=== PATIENT | female | born 1990 | race Caucasian/White ===

== ENCOUNTER 2016-07-26 07:39 | Emergency (ER) | payer OTHER ==
[~2016-07-26] VITALS: Ht 160 cm; Wt 125.0 kg
[2016-07-26 07:41] VITALS: TEMP 36.6; Ht 160 cm; Wt 125.0 kg
[2016-07-26] MEDS ORDERED: ETON1IMP2 (07:53)
[2016-07-26] MEDS ORDERED: SUMA50TA15 PO (07:53)
[2016-07-26] MEDS ORDERED: ONDA4TAB46 PO (07:53)
[2016-07-26] MEDS ORDERED: SODIUM CHLORIDE 0.9% 1000ML 1,000 ML IV STA (07:55)
[2016-07-26] MEDS ORDERED: ONDANSETRON INJ 2 MG/ML 2 ML VIAL IV STA (08:09)
[2016-07-26] MEDS ORDERED: MoRPHine SULFATE 4 MG/ML 1 ML CARP\\VIAL IV STA (08:09)
[2016-07-26 08:15] LABS: BASO % 0.3 %; BASO ABS # 0.02 K/uL (0-0.2); COMPLETE YES; EOS % 3.3 %; HEMATOCRIT 41.2 % (37-47); IG% 0.2 %; MEAN CELL VOLUME 87.3 fL (80-100); MEAN CORPUSCULAR HEMOGLOBIN 29.7 pg (25-34); MONO % 7.2 %; PLATELET COUNT 427 K/uL (130-400); RED BLOOD COUNT 4.72 M/uL (4.2-5.4); WHITE BLOOD COUNT 6.41 K/uL (4.8-10.8)
--- NOTE | 2016-07-26 08:16 | EMERGENCY ROOM VISIT NOTE ---
History First contact with patient: 07:48 Chief Complaint: BACK PAIN Stated Complaint: SEVERE LWR RT BACK PAIN, NAUSEA, VOMITING History of Present Illness The patient is a 25 year old female who presents to the Emergency Room via private vehicle with complaints of "severe lower back pain, nausea, vomiting" The patient states that she has had right lower back pain since yesterday with increased urinary frequency. She also states that she feels bloated. She has also had associated nausea and vomiting since 7 PM last night. She does have a history of kidney stones and states this does feel similar. She's been taking ibuprofen for relief of the pain, with her most recent dose being around 5 AM this morning. She states that the pain in the right lower back feels like a stabbing sensation that radiated around the right flank. She rates the pain as a 7/10. She denies any chance of sexually transmitted infection or diseases. She denies any chance of . There is associated lightheadedness, increased nausea. Her prior abdominal surgeries include . Review of Systems A complete 10-point Review of Systems was discussed with the patient, with pertinent positives and negatives listed in the History of Present Illness. All remaining Review of Systems questions can be considered negative unless otherwise specified. Past Medical/Surgical History C Section Family History No pertinent family history Social History Smoking Status: Current Some Day Smoker Social History: Patient lives at home with family. Current/Historical Medications Scheduled Sulfa/Trimethoprim (Bactrim Ds 800MG/160MG), 1 TAB PO BID Sumatriptan Succinate (Imitrex), Unknown Dose PO PRN Scheduled PRN Ondansetron Hcl (Zofran), 4 MG PO Q6H PRN for Nausea Oxycodone Ir (Roxicodone Ir), 1-2 TAB PO Q4H PRN for Pain Miscellaneous Medications Etonogestrel (Nexplanon) Allergies Coded Allergies: Cortisone (Unverified Allergy, Unknown, ., 07/26/16) Doxycycline (Unverified Allergy, Unknown, ., 07/26/16) Penicillins (Unverified Allergy, Unknown, ., 07/26/16) Physical Exam Vital Signs Date Time Temp Pulse Resp B/P Pulse Ox O2 Delivery O2 Flow Rate FiO2 07/26/16 10:26 58 18 113/72 98 07/26/16 09:01 60 18 124/59 99 Room Air 07/26/16 07:41 36.6 95 18 166/96 99 Room Air Physical Exam VITAL SIGNS - Vital signs and nursing notes were reviewed. Patient is afebrile , hypertensive at 166/96, non-tachycardic and is saturating well on room air 99% . GENERAL -25-year-old female appearing her stated age who is in no acute distress. Communicates well with provider and answers questions appropriately. SKIN - Without rashes. HEAD - NC/AT. EYES - PERRL with EOMI bilaterally. Sclera anicteric. Palpebral conjunctiva pink and moist with no injection noted. EARS - No deformities of external structures noted on gross examination bilaterally. No pain elicited with palpation of the tragus bilaterally. External auditory canals without discharge or otorrhea. Tympanic membranes pearly madrigal without retraction or bulging. No fluid or purulent material visualized behind the TM. Handle of malleus, umbo, cone of light, pars tensa/ flaccid all easily visualized. NOSE - Midline and without cyanosis. No epistaxis or purulent drainage noted. Septum midline without deviation or septal hematoma noted. MOUTH/OROPHARYNX - Without perioral cyanosis. Buccal mucosa pink and moist and without leukoplakia. Tongue midline with equal elevation of palate bilaterally. No tonsillar hypertrophy, erythema, or exudates noted. Good dentition noted. NECK - Neck with FROM. Supple to palpation. No lymphadenopathy noted. No nuchal rigidity. LUNGS - Chest wall symmetric without accessory muscle use, intercostals retractions, or central cyanosis. Normal vesicular breath sounds CTA B/L. No wheezes, rales, or rhonchi appreciated. CARDIAC - RRR with S1/S2. No murmur, rubs, or gallops appreciated. ABDOMEN - Abdominal contour without pulsations or visible masses. BS normoactive all four quadrants. There is tenderness to palpation overlying the right SI joint is reproducible with palpation that radiates around the right flank into the right suprapubic region. No CVA tenderness. No palpable masses , hepatosplenomegaly, or ascites noted. EXTREMITIES - No clubbing or peripheral cyanosis. No pretibial edema present. + 5/5 strength noted in UE/LE bilaterally. NEUROLOGIC - Cranial nerves II through XII grossly intact. Sensory intact to light touch throughout. Patellar reflexes +2/4. PSYCH - A&Ox3 and cooperates fully with examiner. Pt is very pleasant and interacts well with examiner. Medical Decision & Procedures ER Provider Diagnostic Interpretation: CT SCAN OF THE ABDOMEN AND PELVIS WITHOUT IV CONTRAST CLINICAL HISTORY: Right flank pain. COMPARISON STUDY: No priors. TECHNIQUE: CT scan of the abdomen and pelvis is performed from the lung bases to the proximal femora. Images are reviewed in the axial, sagittal, and coronal planes. IV contrast was not administered for this examination as per the front clinician. The examination is degraded by large body habitus, and by streak artifact from the body wall abutting the CT gantry. Automated dose control exposure was utilized. CT DOSE: 1990.34 mGy.cm FINDINGS: Lung bases: The heart is normal in size and without pericardial effusion. The lung bases are clear. Liver: The unenhanced liver is enlarged, measuring 19.6 cm in length. The liver demonstrates diffusely diminished attenuation consistent with hepatic steatosis. Fatty sparing is seen adjacent to gallbladder fossa. There is no intrahepatic biliary ductal dilatation. Gallbladder: Unremarkable. Spleen: Normal in size and attenuation. Pancreas: Unremarkable. Adrenal glands: Unremarkable. Kidneys: The unenhanced kidneys are normal in size and without hydronephrosis. There are no renal calculi identified. There is no evidence of contour deforming renal mass lesion. Abdominal vasculature: The abdominal aorta is normal in course and caliber. Bowel: The small bowel and colon are normal in course and caliber. There is moderate colonic fecal retention. The appendix is well-visualized and normal. Peritoneum: There is no intraperitoneal free air or abdominal ascites. There is a fat-containing umbilical hernia. Lymphadenopathy: None. Pelvic viscera: The bladder is decompressed and grossly unremarkable. The uterus and adnexa are normal as visualized. Skeletal structures: No lytic or blastic lesions are seen. Mild sclerotic change is noted in the sacroiliac joints. IMPRESSION: 1. There are no acute infectious or inflammatory findings in the abdomen or pelvis. 2. Hepatomegaly and hepatic steatosis. Electronically signed by: Robert Handley M.D. 07/26/2016 8:34 AM Dictated Date/Time: 07/26/2016 8:30 AM PELVIC ULTRASOUND CLINICAL HISTORY: Right flank pain radiating to pelvis. COMPARISON STUDY: CT of the abdomen and pelvis July 26, 2016. TECHNIQUE: Transabdominal and transvaginal sonography of the pelvis was performed. FINDINGS: The uterus measures 7.5 x 4 x 4.5 cm. The endometrium measures 6 mm in thickness. This exam was compromised by suboptimal penetration. Neither ovary was visualized. There was no free fluid. IMPRESSION: 1. Normal sonographic appearance of the uterus. 2. Nonvisualization of the ovaries but no adnexal masses identified. 3. No free fluid. 4. Study compromised by suboptimal penetration. Electronically signed by: Blanco Last M.D. 07/26/2016 9:44 AM Dictated Date/Time: 07/26/2016 9:43 AM PELVIC ULTRASOUND CLINICAL HISTORY: Right flank pain radiating to pelvis. COMPARISON STUDY: CT of the abdomen and pelvis July 26, 2016. TECHNIQUE: Transabdominal and transvaginal sonography of the pelvis was performed. FINDINGS: The uterus measures 7.5 x 4 x 4.5 cm. The endometrium measures 6 mm in thickness. This exam was compromised by suboptimal penetration. Neither ovary was visualized. There was no free fluid. IMPRESSION: 1. Normal sonographic appearance of the uterus. 2. Nonvisualization of the ovaries but no adnexal masses identified. 3. No free fluid. 4. Study compromised by suboptimal penetration. Electronically signed by: Blanco Last M.D. 07/26/2016 9:44 AM Dictated Date/Time: 07/26/2016 9:43 AM Laboratory Results 07/26/16 08:05 Red Blood Count 4.72, Mean Corpuscular Volume 87.3, Mean Corpuscular Hemoglobin 29.7, Mean Corpuscular Hemoglobin Concent 34.0, Mean Platelet Volume 10.0, Neutrophils (%) (Auto) 50.0, Lymphocytes (%) (Auto) 39.0, Monocytes (%) (Auto) 7.2, Eosinophils (%) (Auto) 3.3, Basophils (%) (Auto) 0.3, Neutrophils # (Auto) 3.21, Lymphocytes # (Auto) 2.50, Monocytes # (Auto) 0.46, Eosinophils # (Auto) 0.21, Basophils # (Auto) 0.02 07/26/16 08:05 Test 07/26/16 07:48 07/26/16 08:05 Urine Color YELLOW Urine Appearance CLOUDY (CLEAR) Urine pH 7.0 (4.5-7.5) Urine Specific [place] 1.024 (1.000-1.030) Urine Protein NEG (NEG) Urine Glucose (UA) NEG (NEG) Urine Ketones NEG (NEG) Urine Occult Blood TRACE (NEG) Urine Nitrite NEG (NEG) Urine Bilirubin NEG (NEG) Urine Urobilinogen NEG (NEG) Urine Leukocyte Esterase TRACE (NEG) Urine WBC (Auto) >30 /hpf (0-5) Urine RBC (Auto) 0-4 /hpf (0-4) Urine Hyaline Casts (Auto) /lpf (0-5) Urine Epithelial Cells (Auto) >30 /lpf (0-5) Urine Bacteria (Auto) 4+ (NEG) Urine Pathogenic Casts /lpf (0) Urine Test NEG (NEG) White Blood Count 6.41 K/uL (4.8-10.8) Red Blood Count 4.72 M/uL (4.2-5.4) Hemoglobin 14.0 g/dL (12.0-16.0) Hematocrit 41.2 % (37-47) Mean Corpuscular Volume 87.3 fL (80-100) Mean Corpuscular Hemoglobin 29.7 pg (25-34) Mean Corpuscular Hemoglobin Concent 34.0 g/dl (32-36) Platelet Count 427 K/uL (130-400) Mean Platelet Volume 10.0 fL (7.4-10.4) Neutrophils (%) (Auto) 50.0 % Lymphocytes (%) (Auto) 39.0 % Monocytes (%) (Auto) 7.2 % Eosinophils (%) (Auto) 3.3 % Basophils (%) (Auto) 0.3 % Neutrophils # (Auto) 3.21 K/uL (1.4-6.5) Lymphocytes # (Auto) 2.50 K/uL (1.2-3.4) Monocytes # (Auto) 0.46 K/uL (0.11-0.59) Eosinophils # (Auto) 0.21 K/uL (0-0.5) Basophils # (Auto) 0.02 K/uL (0-0.2) RDW Standard Deviation 43.8 fL (36.4-46.3) RDW Coefficient of Variation 13.6 % (11.5-14.5) Immature Granulocyte % (Auto) 0.2 % Immature Granulocyte # (Auto) 0.01 K/uL (0.00-0.02) Anion Gap 7.0 mmol/L (3-11) Est Creatinine Clear Calc Drug Dose 120.2 ml/min Estimated GFR () 100.3 Estimated GFR (Non- 86.5 BUN/Creatinine Ratio 17.1 (10-20) Calcium Level 8.8 mg/dl (8.5-10.1) Total Bilirubin 0.5 mg/dl (0.2-1) Aspartate Amino Transf (AST/SGOT) 16 U/L (15-37) Alanine Aminotransferase (ALT/SGPT) 26 U/L (12-78) Alkaline Phosphatase 82 U/L (45-117) Total Protein 7.4 gm/dl (6.4-8.2) Albumin 3.6 gm/dl (3.4-5.0) Globulin 3.8 gm/dl (2.5-4.0) Albumin/Globulin Ratio 0.9 (0.9-2) Lipase 241 U/L (73-393) Medications Administered Medications (Trade) Dose Ordered Sig/Jen Route Start Time Stop Time Status Last Admin Dose Admin Sodium Chloride (Nss 1000ml) 1,000 ml @ 999 mls/hr Q1H1M STAT IV 07/26/16 07:55 07/26/16 08:55 DC 07/26/16 08:14 999 MLS/HR Morphine Sulfate (MoRPHine SULFATE INJ) 4 mg NOW STAT IV 07/26/16 08:09 07/26/16 08:10 DC 07/26/16 08:14 4 MG Ondansetron HCl (Zofran Inj) 4 mg NOW STAT IV 07/26/16 08:09 07/26/16 08:10 DC 07/26/16 08:14 4 MG Medical Decision Patient was seen and evaluated as above. After obtaining a thorough history and physical examination IV access was initiated and the above workup was performed. She has a history of renal calculi, with presentation suggestive of such therefore CAT scan was obtained of the abdomen and pelvis without contrast for stone. Results as above. This was negative for acute process. CBC reveals no leukocytosis or anemia. Her platelet count is elevated at 427. CMP reveals chloride elevation 109, otherwise unremarkable. Lipase is within normal limits. Urine does reveal trace occult blood, trace leukocyte esterase, greater than 30 white blood cells, greater than 30 epithelial cells, 4+ urinary bacteria and negative urinary test. Patient declined exam. Ultrasound was performed transvaginally as well as pelvic complete. This was a suboptimal study for the ovaries however I do not suspect ovarian torsion greatly in this case. She currently appears well. For pain she was given morphine and Zofran. Most of her pain was over the right SI joint, and I suspect sacroiliitis. There was no evidence of CVA tenderness, as most of her pain was inferiorly. There was minimal pain in the suprapubic region. Although pyelonephritis was entertained given the patient's presentation of nausea, vomiting and urinary frequency, the urinalysis was not strongly suggestive of a formal UTI/pyelonephritis, she had no white count and is afebrile. The patient's urine will be sent to culture, and an the mean time she' ll be treated with 3 days of Bactrim for probable UTI. If the urinalysis reveals a treatable bacteria, that it may be continued. The patient also has a moderate amount of fecal retention. She was educated upon this. She was provided a prescription for Bactrim, as well as pain medication which will be oxycodone immediate release she was also hydrated with 1 L of normal saline during her stay. Patient was educated upon importance of follow-up, was educated upon worrisome symptoms which to return, had questions prior to discharge, and was discharged home in good condition. In the evaluation and treatment of this patient the following differential diagnoses were entertained: Pyelonephritis, UTI, ectopic , ovarian torsion, diverticulitis, appendicitis, sacroiliitis, among others. Case was discussed with emergency Department attending. [place] Drug Monitoring Program Search Results: patient reviewed within database, no issues identified Impression Primary Impression: Right flank pain Additional Impressions: UTI (urinary tract infection) Sacroiliitis Departure Information Dispostion Home / Self-Care Condition GOOD Prescriptions Sulfa/Trimethoprim (Bactrim Ds 800MG/160MG) Tab 1 TAB PO BID for 3 Days, #6 TAB Prov: Joe Boyd PA-C 07/26/16 Oxycodone Ir (Roxicodone Ir) 5 Mg Tab 1-2 TAB PO Q4H Y for Pain, #15 TAB For Initial Treatment Prov: Joe Boyd PA-C 07/26/16 Referrals No Doctor, Assigned (PCP) Patient Instructions My [facility] Additional Instructions You have been treated in the Emergency Department your Abdominal Pain. Laboratory results and imaging studies have ruled out any emergent causes for your abdominal pain which would warrant admission or surgery. You have been treated in the Emergency Department for a Urinary Tract Infection (UTI). You have been prescribed Bactrim to be taken twice daily. This is an antibiotic. All antibiotics have the potential to cause diarrhea. Stop this medication and contact a medical provider if you were to develop any significant adverse side effects including: wheezing, shortness of breath, passing out, vomiting, or a diffuse rash. Always take antibiotics as directed and COMPLETE the ENTIRE course regardless of the improvement of your symptoms. For pain control, you can use the following [id number] medicines (if >12 yo): - Regular strength (325mg/tab) Tylenol (acetaminophen) 2 tabs every 4-6 hours as needed. Do not exceed 12 tablets in a 24 hour period. Avoid taking more than 3 grams (3000 mg) of Tylenol per day. This includes any other sources of acetaminophen you may take on a regular basis. - Regular strength (200 mg/tab) Advil (ibuprofen) 1-2 tabs every 4-6 hours as needed. Do not exceed a dose of 3200 mg per day. Return to the emergency department if your symptoms worsen despite treatment course outlined above. Drink plenty of water and stay well hydrated. As with any trip to the Emergency Department, you should follow-up with your Primary Care Provider from today's visit. Return to the emergency department if your symptoms persist despite treatment plan outlined above or if the following symptoms occur: increased fevers, chills , low back pain, nausea/vomiting, or blood in your urine. You have been prescribed Oxy IR to be used for pain control. This is a narcotic medication. You cannot drive or consume alcohol while on this medicine. This medicine should only be used for pain that cannot be controlled with over-the- counter pain medicines. Drink plenty of water and stay well hydrated. As with any trip to the Emergency Department, you should follow-up with your Primary Care Provider from today's visit. Please follow-up for the hepatic steatosis as we discussed. Please call your family doctor later today to schedule follow-up. Please discuss the findings of the CT scan. Return to the emergency department if your symptoms persist despite treatment plan outlined above or if the following symptoms occur: increased fevers, chills , worsening nausea/vomiting, blood in your stool or urine. Please return to emergency department with any new/concerning symptoms. Problem Qualifiers
[2016-07-26 08:19] LABS: URINE APPEARANCE CLOUDY (CLEAR); URINE BILIRUBIN NEG (NEG); URINE COLOR YELLOW; URINE EPITHELIAL CELL AUTO >30 /lpf (0-5); URINE NITRITE NEG (NEG); URINE SPECIFIC GRAVITY 1.024 (1.000-1.030); UROBILINOGEN NEG (NEG); ZZUR CULT IF INDIC CLEAN CATCH YES
[2016-07-26 08:34] LABS: BUN/CREATININE RATIO 17.1 (10-20); CALCIUM 8.8 mg/dl (8.5-10.1); CREATININE 0.92 mg/dl (0.60-1.20); POTASSIUM 3.9 mmol/L (3.5-5.1)
--- NOTE | 2016-07-26 08:36 | DIAGNOSTIC IMAGING REPORT ---
CT SCAN OF THE ABDOMEN AND PELVIS WITHOUT IV CONTRAST CLINICAL HISTORY: Right flank pain. COMPARISON STUDY: No priors. TECHNIQUE: CT scan of the abdomen and pelvis is performed from the lung bases to the proximal femora. Images are reviewed in the axial, sagittal, and coronal planes. IV contrast was not administered for this examination as per the front clinician. The examination is degraded by large body habitus, and by streak artifact from the body wall abutting the CT gantry. Automated dose control exposure was utilized. CT DOSE: 1990.34 mGy.cm FINDINGS: Lung bases: The heart is normal in size and without pericardial effusion. The lung bases are clear. Liver: The unenhanced liver is enlarged, measuring 19.6 cm in length. The liver demonstrates diffusely diminished attenuation consistent with hepatic steatosis. Fatty sparing is seen adjacent to gallbladder fossa. There is no intrahepatic biliary ductal dilatation. Gallbladder: Unremarkable. Spleen: Normal in size and attenuation. Pancreas: Unremarkable. Adrenal glands: Unremarkable. Kidneys: The unenhanced kidneys are normal in size and without hydronephrosis. There are no renal calculi identified. There is no evidence of contour deforming renal mass lesion. Abdominal vasculature: The abdominal aorta is normal in course and caliber. Bowel: The small bowel and colon are normal in course and caliber. There is moderate colonic fecal retention. The appendix is well-visualized and normal. Peritoneum: There is no intraperitoneal free air or abdominal ascites. There is a fat-containing umbilical hernia. Lymphadenopathy: None. Pelvic viscera: The bladder is decompressed and grossly unremarkable. The uterus and adnexa are normal as visualized. Skeletal structures: No lytic or blastic lesions are seen. Mild sclerotic change is noted in the sacroiliac joints. IMPRESSION: 1. There are no acute infectious or inflammatory findings in the abdomen or pelvis. 2. Hepatomegaly and hepatic steatosis. Electronically signed by: Robert Handley M.D. 07/26/2016 8:34 AM Dictated Date/Time: 07/26/2016 8:30 AM
[2016-07-26 08:37] LABS: ALB/GLOB RATIO 0.9 (0.9-2)
[2016-07-26 08:53] LABS: MANUAL MICROSCOPIC REQUIRED? NO; REVIEW REQ? YES
--- NOTE | 2016-07-26 09:46 | DIAGNOSTIC IMAGING REPORT ---
PELVIC ULTRASOUND CLINICAL HISTORY: Right flank pain radiating to pelvis. COMPARISON STUDY: CT of the abdomen and pelvis July 26, 2016. TECHNIQUE: Transabdominal and transvaginal sonography of the pelvis was performed. FINDINGS: The uterus measures 7.5 x 4 x 4.5 cm. The endometrium measures 6 mm in thickness. This exam was compromised by suboptimal penetration. Neither ovary was visualized. There was no free fluid. IMPRESSION: 1. Normal sonographic appearance of the uterus. 2. Nonvisualization of the ovaries but no adnexal masses identified. 3. No free fluid. 4. Study compromised by suboptimal penetration. Electronically signed by: Blanco Last M.D. 07/26/2016 9:44 AM Dictated Date/Time: 07/26/2016 9:43 AM
[2016-07-26] MEDS ORDERED: OXYC1TAB3 PO (10:12)
[2016-07-26] MEDS ORDERED: SULF800T23 PO (10:12)
[2016-07-26 10:26] VITALS: BP 113/72; PULSE 58; O2SAT 98
[2016-08-05] MEDS ORDERED: PRLSR20 PO (09:32)
[2016-08-05] MEDS ORDERED: SUCR1TAB29 PO (09:32)
== END 2016-07-26 10:27 | disposition home or self-care (01) ==
LOC: C.EDB 07:42
DX: R10.9 Unspecified abdominal pain (principal); N39.0 Urinary tract infection, site not specified; M46.1 Sacroiliitis, not elsewhere classified; F17.200 Nicotine dependence, unspecified, uncomplicated

== ENCOUNTER → 2016-08-08 | Outpatient (CLI) | payer OTHER ==
[~2016-08-08] MED LIST: ESCI5TAB PO; ETON1IMP2; PRLSR20 PO; SUCR1TAB29 PO
--- NOTE | 2016-08-08 08:03 | DIAGNOSTIC IMAGING REPORT ---
BILIARY ULTRASOUND CLINICAL HISTORY: Epigastric abdominal pain, nausea, vomiting. COMPARISON STUDY: CT scan dated 07/26/2016 FINDINGS: The pancreas appears sonographically normal. There is slight increase in hepatic echogenicity, consistent with hepatic steatosis. The gallbladder appears sonographically normal. There is no right-sided hydronephrosis. There is no ductal dilatation. The common bile duct measures 4 mm. IMPRESSION: Suspected mild hepatic steatosis. Otherwise normal biliary ultrasound. Electronically signed by: Yrn Dawn M.D. 08/08/2016 8:00 AM Dictated Date/Time: 08/08/2016 7:59 AM
== END | disposition home or self-care (01) ==
LOC: C.ULTR 07:31
PROVIDERS: ATTEND Registered Nurse
DX: R11.2 Nausea with vomiting, unspecified (principal); R10.13 Epigastric pain

== ENCOUNTER → 2016-08-08 | Day surgery (SDC) | payer OTHER ==
[2016-08-05 09:33] VITALS: Ht 160 cm; Wt 143.6 kg
[~2016-08-08] VITALS: Ht 160 cm; Wt 143.6 kg
[~2016-08-08] MED LIST changes: +LIDOCAINE HCL 2% 2 ML VIAL (20MG/ML) ONE; +MIDAZOLAM HCL 1 MG/ML 2ML VIAL ONE; +ONDANSETRON INJ 2 MG/ML 2 ML VIAL ONE; +PROPOFOL IV EMULSION 10 MG/ML 20 ML VIAL IV ONE; +SODIUM CHLORIDE 0.9% 500ML 500 ML IV ONE
[2016-08-08 08:36] VITALS: TEMP 36.7
--- NOTE | 2016-08-08 08:48 | Endo History and Physical ---
History & Physical Date of Service: Aug 08, 2016. Chief Complaint: ABD pain, nausea and vomiting Referring Physician: Janki MAN History of Present Illness 26 yo CF who presents for EGD secondary to abdominal pain, nausea and vomiting. Past Surgical History Hx Cardiac Surgery: No Hx Internal Defibrillator: No Hx Pacemaker: No Hx Abdominal Surgery: Yes () Hx of Implantable Prosthesis: No Hx Post-Op Nausea and Vomiting: No Hx Cancer Surgery: No Hx Thoracic Surgery: No Hx Orthopedic: Yes (RT FOOT BONE GRAFT (GRAFT FROM ANKLE)) Hx Urinary Tract Surgery: No Family History None Social History Smoking Status: Current Every Day Smoker Hx Substance Use: No Hx Alcohol Use: No Allergies Coded Allergies: Cortisone (Unverified Allergy, Unknown, DROPS BLOOD PRESSURE AND PASSED OUT, 08/05/16) Doxycycline (Unverified Allergy, Unknown, GI UPSET, 08/05/16) Penicillins (Unverified Allergy, Unknown, HIVES, 08/05/16) Current Medications Reported Home Medications Medications Dose Route/Sig Max Daily Dose Days Date Category Carafate (Sucralfate) 1 Gm Tab 1 Gm PO QID 08/05/16 Reported Prilosec (Omeprazole) 20 Mg Capcr 20 Mg PO QAM 08/05/16 Reported Nexplanon (Etonogestrel) 68 Mg Imp 07/26/16 Reported Vital Signs Weight (Kilograms): 143.64 Height (Feet): 5 Height (Inches): 3 Date Time Temp Pulse Resp B/P Pulse Ox O2 Delivery O2 Flow Rate FiO2 08/08/16 08:36 36.7 64 16 142/80 96 Room Air Physical Exam General Appearance: WD/WN, no apparent distress Respiratory/Chest: Auscultation: breath sounds normal Cardiovascular: Heart Auscultation: RRR Abdomen: Bowel Sounds: normal Inspection & Palpation: soft, non-distended, no tenderness, guarding & rebound Assessment and Plan Assessment: 26 yo CF who presents for EGD secondary to abdominal pain, nausea and vomiting. Plan: Proceed with EGD.
--- NOTE | 2016-08-08 09:46 | Discharge Instructions ---
Endoscopy Patient Instructions Date / Procedure(s) Performed Aug 08, 2016. EGD Allergy Information Coded Allergies: Cortisone (Unverified Allergy, Unknown, DROPS BLOOD PRESSURE AND PASSED OUT, 08/05/16) Doxycycline (Unverified Allergy, Unknown, GI UPSET, 08/05/16) Penicillins (Unverified Allergy, Unknown, HIVES, 08/05/16) Discharge Date / Findings Aug 08, 2016. Gastritis s/p biopsies Medication Instructions OK to resume all medications today as prescribed Reported Home Medications Medications Dose Route/Sig Max Daily Dose Days Date Category Carafate (Sucralfate) 1 Gm Tab 1 Gm PO QID 08/05/16 Reported Prilosec (Omeprazole) 20 Mg Capcr 20 Mg PO QAM 08/05/16 Reported Nexplanon (Etonogestrel) 68 Mg Imp 07/26/16 Reported Provider Instructions Activity Restrictions - No exercising or heavy lifting for 24 hours. - Do not drink alcohol the day of the procedure. - Do not drive a car or operate machinery until the day after the procedure. - Do not make any important decisions or sign important papers in 24 hours after the procedure. Following Day: - Return to full activity which may include returning to work/school. Diet Start your diet with liquids and light foods (jello, soup, juice, toast). Then eat your usual diet if not nauseated. Treatment For Common After Affects For mild abdominal pain, bloating, or excessive gas: - Rest - Eat lightly - Lie on right side Follow-Up Information Follow-up with [facility] as scheduled Anesthesia Information What You Should Know You have had a procedure that required some medicine to reduce anxiety and discomfort. This treatment is called moderate sedation. After receiving the treatment, you may be sleepy, but you will be able to breathe on your own. The effects of the treatment may last for several hours. Follow these instructions along with Activity/Diet recommendations noted above: * Do NOT do anything where dizziness or clumsiness would be dangerous. * Rest quietly at home today, then you can be up and about tomorrow. * Have a responsible person stay with you the rest of today. * You may have had an I.V. today. If so, you may take the dressing off later today. Recommendations Call your doctor if: * Trouble breathing * Continuous vomiting for more than 24 hours * Temperature above 101 degrees * Severe abdominal pain or bloating * Pain not relieved by pain medicine ordered * There is increased drainage or redness from any incision * A large amount of rectal bleeding greater than 2-3 tablespoons. (If you had a polyp/s removed or have hemorrhoids, a small amount of blood - from the rectum is to be expected.) * You have any unanswered questions or concerns. IN THE EVENT OF A SERIOUS EMERGENCY, GO TO THE NEAREST EMERGENCY ROOM Your discharge instructions were prepared by provider Angel Smith. Patient Instructions Signature Page Sherrie Ridley Patient (or Guardian) Signature/Date: I have read and understand the instructions given to me by my caregivers. Caregiver/RN/Doctor Signature/Date: The above-named patient and/or guardian has received patient instructions on this date. + Original Patient Signature Page (only) stays with chart. Please make copy for patient.
--- NOTE | 2016-08-08 10:09 | Anesthesiology Progress Note ---
Anesthesia Post Op Note Date & Time Aug 08, 2016 at 10:08 Vital Signs Pain Intensity: 5 Vital Signs Past 12 Hours Date Time Temp Pulse Resp B/P Pulse Ox O2 Delivery O2 Flow Rate FiO2 08/08/16 08:36 36.7 64 16 142/80 96 Room Air Notes Mental Status: alert / awake / arousable, participated in evaluation Pt Amnestic to Procedure: Yes Nausea / Vomiting: adequately controlled Pain: adequately controlled Airway Patency, RR, SpO2: stable & adequate BP & HR: stable & adequate Hydration State: stable & adequate Anesthetic Complications: no major complications apparent
[2016-08-08 10:20] VITALS: BP 105/67; PULSE 67; O2SAT 99
--- NOTE | 2016-08-08 10:31 | GI REPORT ---
Procedure Date: 08/08/2016 9:31 AM Procedure: Upper GI endoscopy Indications: Epigastric abdominal pain, Nausea with vomiting Medicines: Monitored Anesthesia Care Complications: No immediate complications. Estimated Blood Loss: Estimated blood loss: none. Procedure: Pre-Anesthesia Assessment: - Prior to the procedure, a History and Physical was performed, and patient medications and allergies were reviewed. The patient's tolerance of previous anesthesia was also reviewed. The risks and benefits of the procedure and the sedation options and risks were discussed with the patient. All questions were answered, and informed consent was obtained. Prior Anticoagulants: The patient has taken no previous anticoagulant or antiplatelet agents. ASA Grade Assessment: III - A patient with severe systemic disease. After reviewing the risks and benefits, the patient was deemed in satisfactory condition to undergo the procedure. After obtaining informed consent, the endoscope was passed under direct vision. Throughout the procedure, the patient's blood pressure, pulse, and oxygen saturations were monitored continuously. The scope was introduced through the mouth, and advanced to the second part of duodenum. The upper GI endoscopy was accomplished without difficulty. The patient tolerated the procedure well. Findings: The examined esophagus was normal. Localized mild inflammation characterized by erythema was found in the gastric antrum. Biopsies were taken with a cold forceps for histology. The examined duodenum was normal. Impression: - Normal esophagus. - Gastritis. Biopsied. - Normal examined duodenum. Recommendation: - Resume previous diet. - Continue present medications. - Await pathology results. - Return to GI clinic as previously scheduled. Angel Smith DO 08/08/2016 10:30:07 AM This report has been signed electronically. Note Initiated On: 08/08/2016 9:31 AM I attest to the content of the Intraoperative Record and orders documented therein, exceptions below
== END | disposition home or self-care (01) ==
LOC: C.GI 07:34
PROVIDERS: ATTEND Internal Medicine
DX: K29.70 Gastritis, unspecified, without bleeding (principal); F17.210 Nicotine dependence, cigarettes, uncomplicated; Z79.899 Other long term (current) drug therapy

== ENCOUNTER → 2016-10-31 | Outpatient (CLI) | payer OTHER ==
[~2016-10-31] MED LIST changes: -LIDOCAINE HCL 2% 2 ML VIAL (20MG/ML) ONE; -MIDAZOLAM HCL 1 MG/ML 2ML VIAL ONE; -ONDANSETRON INJ 2 MG/ML 2 ML VIAL ONE; -PROPOFOL IV EMULSION 10 MG/ML 20 ML VIAL IV ONE; -SODIUM CHLORIDE 0.9% 500ML 500 ML IV ONE
== END | disposition home or self-care (01) ==
LOC: C.PAPS 15:19
PROVIDERS: ATTEND Obstetrics & Gynecology
DX: Z01.419 Encounter for gynecological examination (general) (routine) without abnormal findings (principal)

== ENCOUNTER 2016-12-31 08:24 | Emergency (ER) | payer OTHER ==
[~2016-12-31 08:24] MED LIST changes: -ESCI5TAB PO
[2016-12-31 08:26] VITALS: TEMP 36.7; Ht 160 cm
[2016-12-31] MEDS ORDERED: IBUPROFEN 800 MG TAB PO STA (08:45)
--- NOTE | 2016-12-31 08:50 | EMERGENCY ROOM VISIT NOTE ---
History Report prepared by Dinah: Gisela Aceves Under the Supervision of: Dr. Gato Marvin M.D. First contact with patient: 08:39 Chief Complaint: ANKLE PAIN Stated Complaint: FELL LAST PM, RIGHT ANKLE PAIN History of Present Illness The patient is a 26 year old female who presents to the Emergency Room with complaints of persistent right ankle pain that began last evening after a fall around 2200. She currently rates her discomfort as a 6/10 in severity. The patient states that last evening she was stepping into her shower, when she slipped and fell, catching her right ankle on the ledge. She states that she has only been able to walk very little since the fall. The patient reports using ice and ibuprofen for her pain without relief of her symptoms. She states that her last Ibuprofen dose was at 0300 this morning. The patient states that her pain is radiating. She denies any head injury or abdominal pain. The patient reports a history of a bone graft of her right ankle when she was younger. Source of History: patient Onset: last evening after a fall at 2200 Position: ankle (right) Symptom Intensity: 6/10 Quality: other (radiating) Timing: other (persistent) Associated Symptoms: No abdominal pain Review of Systems See HPI for pertinent positives and negatives. A total of ten systems were reviewed and were otherwise negative. Past Medical & Surgical Medical Problems: (1) Kidney stone (2) Preeclampsia Surgical Problems: (1) H/O bone graft (2) Previous section Family History Cancer Diabetes mellitus Hypertension Social History Smoking Status: Current Every Day Smoker Alcohol Use: occasionally Marital Status: in relationship Housing Status: lives with family Occupation Status: employed Current/Historical Medications Scheduled Escitalopram Oxalate (Lexapro), 5 MG PO DAILY Allergies Coded Allergies: Cortisone (Unverified Allergy, Unknown, DROPS BLOOD PRESSURE AND PASSED OUT, 12/31/16) Doxycycline (Unverified Allergy, Unknown, GI UPSET, 12/31/16) Penicillins (Unverified Allergy, Unknown, HIVES, 12/31/16) Physical Exam Vital Signs Date Time Temp Pulse Resp B/P (MAP) Pulse Ox O2 Delivery O2 Flow Rate FiO2 12/31/16 10:40 75 16 129/95 97 12/31/16 10:13 75 16 129/95 97 Room Air 12/31/16 08:55 67 12/31/16 08:26 36.7 82 16 131/77 96 Room Air Physical Exam GENERAL: Awake, alert, well-appearing, in no distress HENT: Normocephalic, atraumatic. Oropharynx unremarkable. EYES: Normal conjunctiva. Sclera non-icteric. NECK: Supple. No nuchal rigidity. FROM. No JVD. RESPIRATORY: Clear to auscultation. CARDIAC: Regular rate, normal rhythm. Extremities warm and well perfused. Pulses equal. ABDOMEN: Soft, non-distended. No tenderness to palpation. No rebound or guarding. No masses. RECTAL: Deferred. MUSCULOSKELETAL: Chest examination reveals no tenderness. The back is symmetrical on inspection without obvious abnormality. There is no CVA tenderness to palpation. No joint edema. LOWER EXTREMITIES: Swelling right ankle with tenderness on the anterior aspect of the distal tibia, range of motion limited secondary to pain, distal pulse and sensory intact. Calves are equal size bilaterally and non-tender. No discoloration. NEURO: Normal sensorium. No sensory or motor deficits noted. SKIN: No rash or jaundice noted. Medical Decision & Procedures ER Provider Diagnostic Interpretation: X-ray: Per my interpretation, radiologist review. RIGHT FOOT MIN 3 VIEWS ROUTINE CLINICAL HISTORY: Pain status post trauma COMPARISON: None. DISCUSSION: No fractures or dislocations are visualized. There is a tiny plantar calcaneal spur. IMPRESSION: No fractures or dislocations identified. Electronically signed by: Yrn Dawn M.D. 12/31/2016 9:44 AM Dictated Date/Time: 12/31/2016 9:44 AM RIGHT ANKLE MIN 3 VIEWS ROUTINE CLINICAL HISTORY: Right ankle pain status post trauma COMPARISON: None. DISCUSSION: No acute fractures or dislocations are visualized. Minimal cortical irregularity of the anterior fibula as visualized in the lateral view may represent a projectional artifact, as no corresponding abnormalities are visualized on the other projections. IMPRESSION: 1. Minimal cortical irregularity of the anterior aspect of the fibula visualized on the lateral projection. This likely represents a projectional artifact. Correlation with the patient's site of pain is advocated. Electronically signed by: Yrn Dawn M.D. 12/31/2016 9:44 AM Dictated Date/Time: 12/31/2016 9:42 AM Medications Administered Medications (Trade) Dose Ordered Sig/Jen Route Start Time Stop Time Status Last Admin Dose Admin Ibuprofen (Motrin Tab) 800 mg NOW STAT PO 12/31/16 08:45 12/31/16 08:46 DC 12/31/16 08:54 800 MG ED Course 0842: The patient was evaluated in room B12B. A complete history and physical exam was performed. 0845: Ordered Motrin Tab 800 mg PO. 1001: I reevaluated the patient and she is resting comfortably. I discussed the exam findings with her and I discussed the treatment plan. She verbalized complete understanding and agreement. She is ready to go home. Medical Decision The patient's presentation and history were concerning for Soft tissue injury, fracture, dislocation, sprain. I reviewed the patient's past medical history, medications, and the nursing notes as described above. Patient is a 26-year-old woman who presents emergency Department with right ankle pain after having a mechanical fall evening prior per history of present illness. The patient is in no acute distress, afebrile vital signs stable. Mild swelling right ankle and proximal dorsum of the foot with TTP distal anterior aspect of tibia. No proximal tibia or fibula tenderness therefore Maisonneuve unlikely. X-ray of the foot and ankle show a question of a fragment on the anterior aspect of the distal tibia. Given the patient's tenderness at that site will put in a boot and have the patient follow-up with ortho. She has seen orthopedics in the past and will [facility] with [facility]. Findings and plan for follow-up d/w patient. Patient agreeable and d /c'd per discharge instructions. Medication Reconcilliation Current Medication List: was personally reviewed by me Blood Pressure Screening Patient's blood pressure: Normal blood pressure Blood pressure disposition: Did not require urgent referral Impression Primary Impression: Ankle fracture, right Scribe Attestation The scribe's documentation has been prepared under my direction and personally reviewed by me in its entirety. I confirm that the note above accurately reflects all work, treatment, procedures, and medical decision making performed by me. Departure Information Dispostion Home / Self-Care Referrals Janki Diggs C.R.N.P. (PCP) Forms HOME CARE DOCUMENTATION FORM, IMPORTANT VISIT INFORMATION Patient Instructions Ankle Fx, My [facility] Additional Instructions Please follow up with orthopedics next week for re-evaluation. You may have a small fracture of your ankle. Otherwise, your exam and xrays did not show signs of an emergent condition at this time. Acetaminophen and ibuprofen for pain as needed. You may bear weight as tolerated with your walking boot with crutches for support. Return to the emergency department for worsening symptoms as described in the accompanying instructions.
[2016-12-31] MEDS ORDERED: ESCI5TAB PO (09:08)
--- NOTE | 2016-12-31 09:45 | DIAGNOSTIC IMAGING REPORT ---
RIGHT ANKLE MIN 3 VIEWS ROUTINE CLINICAL HISTORY: Right ankle pain status post trauma COMPARISON: None. DISCUSSION: No acute fractures or dislocations are visualized. Minimal cortical irregularity of the anterior fibula as visualized in the lateral view may represent a projectional artifact, as no corresponding abnormalities are visualized on the other projections. IMPRESSION: 1. Minimal cortical irregularity of the anterior aspect of the fibula visualized on the lateral projection. This likely represents a projectional artifact. Correlation with the patient's site of pain is advocated. Electronically signed by: Yrn Dawn M.D. 12/31/2016 9:44 AM Dictated Date/Time: 12/31/2016 9:42 AM
--- NOTE | 2016-12-31 09:46 | DIAGNOSTIC IMAGING REPORT ---
RIGHT FOOT MIN 3 VIEWS ROUTINE CLINICAL HISTORY: Pain status post trauma COMPARISON: None. DISCUSSION: No fractures or dislocations are visualized. There is a tiny plantar calcaneal spur. IMPRESSION: No fractures or dislocations identified. Electronically signed by: Yrn Dawn M.D. 12/31/2016 9:44 AM Dictated Date/Time: 12/31/2016 9:44 AM
[2016-12-31 10:40] VITALS: BP 129/95; PULSE 75; O2SAT 97
== END 2016-12-31 10:41 | disposition home or self-care (01) ==
LOC: C.EDB 08:28
DX: S82.891A Other fracture of right lower leg, initial encounter for closed fracture (principal); W18.39XA Other fall on same level, initial encounter; Y93.89 Activity, other specified; Y99.8 Other external cause status; F17.200 Nicotine dependence, unspecified, uncomplicated; Z87.442 Personal history of urinary calculi; Z87.59 Personal history of other complications of pregnancy, childbirth and the puerperium; Z98.891 History of uterine scar from previous surgery; Z98.890 Other specified postprocedural states; Z83.3 Family history of diabetes mellitus; Z82.49 Family history of ischemic heart disease and other diseases of the circulatory system

== ENCOUNTER 2017-08-27 16:18 | Emergency (ER) | payer OTHER ==
[~2017-08-27] VITALS: Ht 162.6 cm; Wt 147.2 kg
[~2017-08-27 16:18] MED LIST changes: +ESCI5TAB PO; -ETON1IMP2; -PRLSR20 PO; -SUCR1TAB29 PO
[2017-08-27 16:23] VITALS: TEMP 36.9; Ht 162.6 cm; Wt 147.2 kg
[2017-08-27] MEDS ORDERED: ESCI1TAB10 PO (16:48)
[2017-08-27] MEDS ORDERED: NAPROXEN 250 MG TAB PO STA (16:51)
--- NOTE | 2017-08-27 17:26 | DIAGNOSTIC IMAGING REPORT ---
AP PELVIS, RIGHT HIP 2 VIEWS HISTORY: right hip pain COMPARISON: None. FINDINGS: There is no fracture or dislocation. Soft tissues are unremarkable. No radiopaque foreign bodies. Cartilage spaces are maintained for age. The sacrum is intact. IMPRESSION: No fracture or dislocation within the pelvis or hips. Electronically signed by: Victor Manuel Espinosa M.D. 08/27/2017 5:25 PM Dictated Date/Time: 08/27/2017 5:23 PM
--- NOTE | 2017-08-27 17:43 | EMERGENCY ROOM VISIT NOTE ---
ED Visit Note First contact with patient: 16:27 CHIEF COMPLAINT: Right hip pain HISTORY OF PRESENT ILLNESS: This 27-year-old female patient presents to the emergency department, ambulatory, complaining of 10 day history of right hip pain. Patient states she went to the chiropractor twice last week and continues to have ongoing and worsening pain. 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 She has been having difficulty sleeping, and states pain is really severe while driving and moving around in the seat. A few days ago, the patient states she stood from sitting while at work, and fell into the washer, as her right leg gave out. She does have a history of previous pelvic fracture (approximately 12 years ago), however nothing of the right hip. She states the chiropractor does usually help align her joint, which helps, but it is not working this time. She denies paresthesias, weakness, bowel or bladder incontinence, abdominal pain, back pain , or temperature changes in the joint. REVIEW OF SYSTEMS: A 10 system review of systems was performed with positives and pertinent negatives listed in the history of present illness. All other systems were reviewed and are negative. ALLERGIES: Cortisone, doxycycline, penicillin MEDICATIONS: Lexapro PMH: Depression SOCIAL HISTORY: The patient lives locally with family. She denies drug, alcohol use. She admits to smoking cigarettes. PHYSICAL EXAM: VITAL SIGNS - Vital signs and nursing notes were reviewed. GENERAL - 27-year-old obese white female, appears stated age and in noticeable discomfort throughout the exam. MUSCULOSKELETAL - Right hip without erythema, edema, and ecchymosis. Tenderness to palpation appreciated over the hip joint. No tenderness extending into the upper leg or buttocks. Lower extremity strength 5/5.. Pt has limited AROM at affected joint due to pain. Full PROM on examination. Normal strength Left/Right versus Left/Right. Pt able to perform AROM at affected joint. No tenderness to palpation appreciated in the lumbar spine distribution. VICTOR MANUEL (MARGARET) TEST: Positive for groin pain HIP SCOURING TEST: Negative NEUROLOGIC/VASCULAR - Neurovascularly intact distally with +3/5 dorsalis pedis pulses palpated bilaterally. Normal sensation to light and sharp touch appreciated distally. RADIOLOGY: AP PELVIS, RIGHT HIP 2 VIEWS HISTORY: right hip pain COMPARISON: None. FINDINGS: There is no fracture or dislocation. Soft tissues are unremarkable. No radiopaque foreign bodies. Cartilage spaces are maintained for age. The sacrum is intact. IMPRESSION: No fracture or dislocation within the pelvis or hips. Electronically signed by: Victor Manuel Espinosa M.D. 08/27/2017 5:25 PM Dictated Date/Time: 08/27/2017 5:23 PM EMERGENCY DEPARTMENT COURSE: The patient was seen and evaluated as above. She was given 500 mg naproxen for her symptoms. X-ray of the pelvis and right hip performed and reviewed by myself and radiologist as above. The patient was reassessed and notes relatively stable symptoms. She is able to ambulate and there is no obvious injury. I suspect an overuse injury with potential soft tissue sprain or strain. I discussed with her the possibility of a small labral tear or other ligament tear. I did encourage the patient to rest for the next 2-3 days. I encouraged the use of scheduled anti-inflammatory medications. She is encouraged to follow-up with orthopedics if no improvement within 1 week. The patient verbalized understanding and agreement with the assessment and plan. Discharge instructions reviewed, the patient was discharged home in good condition. I attest that I have personally reviewed the patient's current medication list. Blood Pressure Screening: Patient was found to have a slightly elevated blood pressure due to circumstances. I do not believe that the patient requires hypertension monitoring. Etiologies such as soft tissue injury, fracture, dislocation, neurovascular compromise, compartment syndrome, as well as others were entertained. DIAGNOSIS: Right hip pain The chart was completed utilizing [employer] Speech voice recognition software. Grammatical errors, random word insertions, pronoun errors, and incomplete sentences are an occasional consequence of this system due to software limitations, ambient noise, and hardware issues. Any formal questions or concerns about the content, text, or information contained within the body of this dictation should be directly addressed to the provider for clarification. Problem List Medical Problems: (1) Kidney stone Status: Resolved (2) Preeclampsia Status: Resolved Surgical Problems: (1) H/O bone graft Status: Resolved (2) Previous section Status: Resolved Current/Historical Medications Scheduled Escitalopram Oxalate (Lexapro), 20 MG PO DAILY Naproxen (Naprosyn), 500 MG PO BID Allergies Coded Allergies: Cortisone (Unverified Allergy, Unknown, DROPS BLOOD PRESSURE AND PASSED OUT, 08/27/17) Doxycycline (Unverified Allergy, Unknown, GI UPSET, 08/27/17) Penicillins (Unverified Allergy, Unknown, HIVES, 08/27/17) Vital Signs Date Time Temp Pulse Resp B/P (MAP) Pulse Ox O2 Delivery O2 Flow Rate FiO2 08/27/17 17:55 73 16 111/81 97 08/27/17 16:23 36.9 88 18 134/96 98 Room Air Medications Administered Medications (Trade) Dose Ordered Sig/Jen Route Start Time Stop Time Status Last Admin Dose Admin Naproxen (Naprosyn Tab) 500 mg NOW STAT PO 08/27/17 16:51 08/27/17 16:53 DC 08/27/17 16:58 500 MG Departure Information Impression Primary Impression: Right hip pain Dispostion Home / Self-Care Condition GOOD Prescriptions Naproxen (Naprosyn) 500 Mg Tab 500 MG PO BID, #60 TAB Prov: Ashely Cardenas PA-C 08/27/17 Referrals RV. Hanna MD (PCP) [facility] Patient Instructions ED Sprain Hip, My [facility] Additional Instructions You were seen in the ED today for right hip pain. X-ray was negative for obvious , acute bony abnormality. As discussed, this does not rule out soft tissue injury. Naproxen 500mg may be used for pain. Use 500mg every 12 hours as needed. Take with food. Avoid using more than 1000mg in a 24 hour period. Do not use 1000mg per day for more than three consecutive days without physician direction. Prolonged inappropriate use can lead to stomach upset or ulcers. (AND/OR) Acetaminophen(Tylenol) may be used for fever or pain. Use 1000mg every six hours as needed. Avoid using more than 3000mg in a 24 hour period. Ice compresses for 20 minutes at a time four times daily for 2-3 days. Rest and elevate your injury. Return to the ER immediately for any numbness, tingling, severe pain, extreme swelling in the extremity or as needed. Call [facility], [phone], if no improvement in 1 week, to arrange follow up for your injury. Follow-up with your primary care physician in 2 to 3 days for a recheck of your current condition.
[2017-08-27] MEDS ORDERED: NAPR-1169 PO (17:47)
[2017-08-27 17:55] VITALS: BP 111/81; PULSE 73; O2SAT 97
== END 2017-08-27 17:56 | disposition home or self-care (01) ==
LOC: C.EDB 16:19 → C.EDD 17:56
DX: M25.551 Pain in right hip (principal)

== ENCOUNTER 2017-09-06 08:33 | Emergency (ER) | payer OTHER ==
[~2017-09-06] VITALS: Ht 162.6 cm; Wt 147.7 kg
[~2017-09-06 08:33] MED LIST changes: +ESCI1TAB10 PO; -ESCI5TAB PO; +NAPR-1169 PO
[2017-09-06 08:42] VITALS: TEMP 36.9; Ht 162.6 cm; Wt 147.7 kg
[2017-09-06] MEDS ORDERED: TRAMADOL HCL 50 MG TAB PO STA (09:22)
--- NOTE | 2017-09-06 09:47 | EMERGENCY ROOM VISIT NOTE ---
ED Visit Note First contact with patient: 08:54 CHIEF COMPLAINT: Right hip pain HISTORY OF PRESENT ILLNESS: This 27-year-old femur patient presents to the emergency department, on crutches/wheelchair, complaining of right hip pain. The patient was here 10 days prior for the same complaint. She states yesterday , she slipped, twisted the leg wrong, and fell, stating "I went straight down". The patient denies landing on her hip. The patient states she has been seeing orthopedics and did start physical therapy. She contacted orthopedics traction power engineer last night, but did not contact them for an appointment this morning. She states she is unable to bear weight, and has significant limited range of motion in the hip with severe pain in the hip joint and groin. The patient denies any bruising, ecchymosis, or other concerning symptoms. She does report some paresthesias radiating down the lateral aspect of the leg and into the calf. She denies any numbness. The patient is currently taking meloxicam. Her last dose was this morning. REVIEW OF SYSTEMS: A 6 system review of systems was performed with positives and pertinent negatives listed in the history of present illness. All other systems were reviewed and are negative. ALLERGIES: Cortisone, doxycycline, penicillin MEDICATIONS: Mobic, Lexapro PMH: Anxiety, depression SOCIAL HISTORY: The patient lives locally with family. She denies drug, alcohol use. She does currently smoke cigarettes daily. PHYSICAL EXAM: VITALS: Vitals are noted on the nurse's note and reviewed by myself. Vital signs stable. GENERAL: This is a 27-year-old obese white female, in no acute distress, nondiaphoretic, well-developed well-nourished. MUSCULOSKELETAL - Right hip without erythema, edema, and ecchymosis. Tenderness to palpation appreciated over the lateral aspect of the right hip as well as the groin. No tenderness extending into the upper leg or buttocks. 3/5 strength appreciated on the right secondary to patient discomfort. Pt has limited AROM at affected joint on the right. 5/5 strength Left/Right versus Left/Right. Pt. unable to perform AROM at affected joint. No tenderness to palpation appreciated in the lumbar spine distribution. VETO (MARGARET) TEST: Positive for tenderness and limited ROM NEUROLOGIC/VASCULAR - Neurovascularly intact distally with +3/5 dorsalis pedis pulses palpated bilaterally. Bilateral normal sensation to light and sharp touch appreciated distally. RADIOLOGY: R HIP-LOWER EXTREMITY WITHOUT HISTORY: 27 years-old Female right hip/groin pain acute right hip and groin pain COMPARISON: Pelvis and right hip radiographs 08/27/2017 TECHNIQUE: Multiple axial CT images of the right hip were obtained without the use of IV contrast. A dose lowering technique was used consistent with the principals of MARCELL. FINDINGS: Bone mineralization is within normal limits. The imaged right hemipelvis and acetabulum appear normal. The right femoral acetabular joint is located demonstrates no significant degenerative changes or acute fracture. No evidence of avascular necrosis or intra-articular loose body. Imaged intrapelvic structures demonstrate no acute abnormality. No adenopathy. The soft tissues and musculature appear to be within normal limits. No definite evidence of bursitis about the right hip. No large joint effusion. IMPRESSION: No acute fracture, dislocation or significant degenerative changes. The above report was generated using voice recognition software. It may contain grammatical, syntax or spelling errors. Electronically signed by: Michoacano Galan M.D. 09/06/2017 9:58 AM Dictated Date/Time: 09/06/2017 9:55 AM EMERGENCY DEPARTMENT COURSE: The patient was seen and evaluated as above. She was given 50 mg tramadol for her pain. She was seen here 10 days ago and did have negative x-rays performed at that time. Since that time, she has seen orthopedics and is doing physical therapy. Last night, the patient slipped, causing a new injury to the right lower extremity. She is having worsening pain in the hip and groin. Because of this and her negative x-rays 10 days ago , a CT scan of the right hip was performed. This was reviewed by myself and radiologist as above. I did contact orthopedics, and spoke with Philip, Physician [employer] who works with Dr. Gee, who suspects the patient will need an MRI next, but recommended she come in to be evaluated tomorrow in the office at 11:50 AM. We did decide to switch the patient from Mobic to Toradol to hopefully help with her pain. I discussed the findings of imaging with the patient at bedside and discussed the plan of care at this time. The patient verbalized understanding and agreement. All questions answered to patient's satisfaction. Discharge instructions reviewed, patient was discharged home in good condition. I attest that I have personally reviewed the patient's current medication list. Patient was found to have normal blood pressure on screening and does not require follow-up. Etiologies such as soft tissue injury, fracture, dislocation, neurovascular compromise, compartment syndrome, as well as others were entertained. DIAGNOSIS: right hip pain, groin strain The chart was completed utilizing [employer] Speech voice recognition software. Grammatical errors, random word insertions, pronoun errors, and incomplete sentences are an occasional consequence of this system due to software limitations, ambient noise, and hardware issues. Any formal questions or concerns about the content, text, or information contained within the body of this dictation should be directly addressed to the provider for clarification. Problem List Medical Problems: (1) Kidney stone Status: Resolved (2) Preeclampsia Status: Resolved Surgical Problems: (1) H/O bone graft Status: Resolved (2) Previous section Status: Resolved Current/Historical Medications Scheduled Escitalopram Oxalate (Lexapro), 20 MG PO DAILY Ketorolac Tromethamine (Toradol), 1 TAB PO TID Meloxicam (Mobic), 1 DOSE PO DAILY Allergies Coded Allergies: Cortisone (Unverified Allergy, Unknown, DROPS BLOOD PRESSURE AND PASSED OUT, 09/06/17) Doxycycline (Unverified Allergy, Unknown, GI UPSET, 09/06/17) Penicillins (Unverified Allergy, Unknown, HIVES, 09/06/17) Vital Signs Date Time Temp Pulse Resp B/P (MAP) Pulse Ox O2 Delivery O2 Flow Rate FiO2 09/06/17 11:16 61 16 121/48 99 09/06/17 10:20 60 18 108/78 98 Room Air 09/06/17 08:42 36.9 79 16 132/84 97 Room Air Medications Administered Medications (Trade) Dose Ordered Sig/Jen Route Start Time Stop Time Status Last Admin Dose Admin Tramadol HCl (Ultram Tab) 50 mg NOW STAT PO 09/06/17 09:22 09/06/17 09:30 DC 09/06/17 09:35 50 MG Departure Information Impression Primary Impression: Right hip pain Additional Impression: Strain of muscle of right groin region Dispostion Home / Self-Care Condition GOOD Prescriptions Ketorolac Tromethamine (TORADOL) 10 Mg Tab 1 TAB PO TID for 5 Days, #15 TAB Prov: Ashely Cardenas PA-C 09/06/17 Referrals RV. Hanna MD (PCP) Erlin Gee, DO Patient Instructions ED Sprain Hip, My [facility] Additional Instructions You were seen in the ED today for right hip pain. CT scan performed and did not note any acute or occult fractures. DO NOT drive, drink alcohol, operate machinery, or perform dangerous activities today. You were given medications in the ER that can affect your ability to safely function or operate a vehicle. You were given a prescription for Toradol. Use 10mg 3 times per day as needed. Take with food. Avoid using more than 30mg in a 24 hour period. Do not use 30mg per day for more than three consecutive days without physician direction. Prolonged inappropriate use can lead to stomach upset or ulcers. (AND/OR) Acetaminophen(Tylenol) may be used for fever or pain. Use 1000mg every six hours as needed. Avoid using more than 4000mg in a 24 hour period. Ice compresses for 20 minutes at a time four times daily for 2-3 days. Use the crutches as instructed. Avoid weight bearing until cleared by orthopedics. Use the sling as instructed. Remove your arm from the sling 4-6 times a day and move all the joints around to keep them loose. Rest and elevate your injury. Return to the ER immediately for any numbness, tingling, severe pain, extreme swelling in the extremity or as needed. Call [facility], [phone], today when you leave to confirm an 11:50am appointment tomorrow. Problem Qualifiers
--- NOTE | 2017-09-06 10:00 | DIAGNOSTIC IMAGING REPORT ---
R HIP-LOWER EXTREMITY WITHOUT HISTORY: 27 years-old Female right hip/groin pain acute right hip and groin pain COMPARISON: Pelvis and right hip radiographs 08/27/2017 TECHNIQUE: Multiple axial CT images of the right hip were obtained without the use of IV contrast. A dose lowering technique was used consistent with the principals of MARCELL. FINDINGS: Bone mineralization is within normal limits. The imaged right hemipelvis and acetabulum appear normal. The right femoral acetabular joint is located demonstrates no significant degenerative changes or acute fracture. No evidence of avascular necrosis or intra-articular loose body. Imaged intrapelvic structures demonstrate no acute abnormality. No adenopathy. The soft tissues and musculature appear to be within normal limits. No definite evidence of bursitis about the right hip. No large joint effusion. IMPRESSION: No acute fracture, dislocation or significant degenerative changes. The above report was generated using voice recognition software. It may contain grammatical, syntax or spelling errors. Electronically signed by: Michoacano Galan M.D. 09/06/2017 9:58 AM Dictated Date/Time: 09/06/2017 9:55 AM
[2017-09-06] MEDS ORDERED: MELO7.5T6 PO (10:36)
[2017-09-06] MEDS ORDERED: KETO10TA PO (11:05)
[2017-09-06 11:16] VITALS: BP 121/48; PULSE 61; O2SAT 99
== END 2017-09-06 11:30 | disposition home or self-care (01) ==
LOC: C.EDB 08:35 → C.EDA 11:30
DX: M25.551 Pain in right hip (principal); S76.811A Strain of other specified muscles, fascia and tendons at thigh level, right thigh, initial encounter; W01.0XXA Fall on same level from slipping, tripping and stumbling without subsequent striking against object, initial encounter; E66.9 Obesity, unspecified; F32.9 Major depressive disorder, single episode, unspecified; F41.9 Anxiety disorder, unspecified; Z88.1 Allergy status to other antibiotic agents; Z88.0 Allergy status to penicillin; Z88.8 Allergy status to other drugs, medicaments and biological substances

== ENCOUNTER 2021-05-15 16:07 | Inpatient (IN) ==
--- NOTE | 2021-05-15 16:27 | Emergency Department Note ---
Impression & Plan Depression with suicidal ideation, Anxiety, Tobacco use ED Provider Note NAME: RON WEINER AGE: 30 SEX: F : 1990 ARRIVES VIA: Walk-In INFORMANT: Patient, ED PROVIDER(S): Nate Rivas MD Chief Complaint: Anxiety, depression, suicidal ideation with plan HPI: Patient states that she does have a plan which to overdose on her propranolol medication which she takes for anxiety. Patient denies any fevers chills chest pains or shortness of breath but does feel anxious. The patient states that numerous things have been more overwhelming and she believes that this is caused her to think of suicidal ideation. The patient denies any prior history of attempts. The patient states that her does have guns in the home but they are locked and she does not know how to access the guns. Patient states that she primarily has been sleeping too little but her appetite has been normal. 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 Patient does live with her and child at home and states that there are no current family issues at this time. Patient did have a recent change in her Cymbalta with his caused her to be somewhat tremulous and shaky and this was resumed back at her previous dose. This was initiated due to her increasing anxiety and depressed mood. Patient denies any HI or AVH. Patient states she is currently between jobs. Patient does state that she is seeking inpatient treatment at this time. ROS: See HPI for pertinent positives and negatives. A total of 10 systems were reviewed and otherwise negative. Past medical history: See below Surgical history: See below Social history: See below Physical Exam: GENERAL: NAD, wearing a mask, non-toxic. EYE EXAM: Normal conjunctiva. PERRL, no anisocoria and EOM's grossly intact w/o pain. NECK: Supple, no nuchal rigidity, no adenopathy, non-tender. No signs of meningismus. LUNGS: Clear to auscultation. Normal chest wall mechanics. HEART: NSR, no MRG. ABDOMEN: Abdomen soft, non-tender, normo-active bowel sounds, no masses, no rebound or guarding. BACK: No CVA TTP. SKIN: No rashes and no bruising. UPPER EXTREMITIES: Upper extremities are grossly normal. LOWER EXTREMITIES: Grossly normal, no edema. NEURO EXAM: A&O x3, cranial nerves II-XII grossly intact, normal speech, moves all 4 extremities on command w/o issue. Psych: Anxious, SI with plan, negative HI, negative AVH. Differential diagnoses: Mood disorder, infection, hypoglycemia, electrolyte abnormalities, cardiac sources, intracerebral event, toxicologic, trauma, neurologic, as well as other pathologies. Course: Patient was seen and evaluated the bedside. Full history physical exam was performed. MDM: Patient was seen due to concern for mental wellness suicidal ideation and plan. Blood work was obtained. The patient was seen medically cleared seen and evaluated by the case assistant and recommendation was made for inpatient treatment. Patient was a voluntary 201 and the patient was admitted to 3 S. Past Med/Surg History Medical History (Updated 05/15/21 @ 22:33 by Nate Rivas MD) Ankle fracture, right Asthma Attempting to conceive Closed right hip fracture Closed right hip fracture Nipple lesion Renal calculi Surgical History H/O bone graft 2003 H/O breast biopsy H/O section Status post hip surgery Family History Mother Hypertension Irritable bowel syndrome Father Diabetes Irritable bowel syndrome Grandfather (Maternal) Myocardial infarction Denies family history of Ovarian cancer Prostate cancer Crohn's disease Breast cancer Colorectal cancer Stroke Social History Smoking Status: Light tobacco smoker Age Started Using Tobacco: 21; Age Quit Using Tobacco: 28; packs per day: 0.25; Years Smoked: 8; Cigarettes Per Day: 5 or 6 a day; Second Hand Exposure: No; Hx Alcohol Use: No Hx Substance Use: No Preferred Language: Turkish Communication Ability: Effective Visual Impairment: No Limitations Hearing Ability: Normal Fleshing Machine Operator Required: No Beliefs That Will Affect Care: None marital status: Current Living Situation: Spouse current occupational status: employed 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 Feels Safe at Home: Yes Childhood Exposure to Second-Hand Smoke: Yes (father) Dental Care, Regularly: Yes Physical Activity Frequency: 1-2 Times per Week Assistive Devices: None Allergies Allergies Allergy/AdvReac Type Severity Reaction Status Date / Time Penicillins Allergy Intermediate HIVES Verified 05/15/21 16:48 buspirone [From BuSpar] AdvReac Severe BAD MENTAL Verified 05/15/21 16:48 HEALTH SIDE EFFECTS sertraline AdvReac Severe BAD MENTAL Verified 05/15/21 16:48 HEALTH SIDE EFFECTS cortisone AdvReac Intermediate DROPS Verified 05/15/21 16:48 BLOOD PRESSURE AND PASSED OUT doxycycline AdvReac Intermediate GI UPSET Verified 05/15/21 16:48 Home Meds Home Medications Medication Instructions Recorded Confirmed aspirin 81 mg chewable tablet 81 mg PO QAM 09/09/19 05/15/21 (Aspirin Childrens) duloxetine 30 mg capsule,delayed 30 mg PO QAM 05/15/21 05/15/21 release duloxetine 60 mg capsule,delayed 60 mg PO QAM 05/15/21 05/15/21 release furosemide 40 mg tablet (Lasix) 40 mg PO DAILY PRN 05/15/21 05/15/21 lorazepam 0.5 mg tablet 0.5 mg PO BID PRN 05/15/21 05/15/21 propranolol 10 mg tablet 10 mg PO BID PRN 05/15/21 05/15/21 Results & Data (ED) Vital Signs Vital Signs - 24 hr 05/15/21 16:14 05/15/21 18:09 Temperature 36.0 C L 36.7 C Temperature Source Temporal Artery Scan Oral Pulse Rate 105 H Pulse Rate [Finger] 93 H Pulse Rhythm Regular Pulse Rhythm [Finger] Regular Pulse Strength Normal Pulse Strength [Finger] Normal Respiratory Rate 20 18 Respiratory Effort / Characteristics Non-Labored Spontaneous Non-Labored Spontaneous Respiratory Depth Normal Normal Respiratory Pattern Regular Blood Pressure 160/86 H Blood Pressure [Left Arm] 119/84 Blood Pressure Mean 110 Blood Pressure Mean [Left Arm] 95 Blood Pressure Position Sitting Blood Pressure Position [Left Arm] Sitting Pulse Oximetry 99 96 Oxygen Delivery Method Room Air Room Air Sepsis Recent Fever Within 48 Hours No Sepsis New/Unexplained Change in Mental Status No Sepsis Action Taken by Nursing No Action Required Home Medications Current Medication List: was personally reviewed by me Laboratory Data Attestation: I reviewed the patient's lab results. Result diagrams: 05/15/21 16:58 05/15/21 16:58 Lab Results 05/15/21 05/15/21 05/15/21 Range/Units 16:22 16:26 16:26 WBC (4.8-10.8) K/uL RBC (4.2-5.4) M/uL Hgb (12.0-16.0) g/dL Hct (37-47) % MCV (80-100) fL MCH (25-34) pg MCHC (32-36) g/dL RDW Std Deviation (36.4-46.3) fL RDW Coeff of Nellie (11.5-14.5) % Plt Count (130-400) K/uL MPV (7.4-10.4) fL Immature Gran % (Auto) % Neut % (Auto) % Lymph % (Auto) % Luce % (Auto) % Eos % (Auto) % Baso % (Auto) % Neut # (Auto) (1.4-6.5) K/uL Lymph # (Auto) (1.2-3.4) K/uL Luce # (Auto) (0.11-0.59) K/uL Eos # (Auto) (0-0.5) K/uL Baso # (Auto) (0-0.2) K/uL Immature Gran # (Auto) (0.00-0.02) K/uL Sodium (136-145) mmol/L Potassium (3.5-5.1) mmol/L Chloride (98-107) mmol/L Carbon Dioxide (21-32) mmol/L Anion Gap (3-11) BUN (6-23) mg/dl Creatinine (0.6-1.2) mg/dl Est Cr Clr Drug Dosing ml/min Est GFR ( Amer) ml/min Est GFR (Non-Af Amer) ml/min BUN/Creatinine Ratio (10-20) Glucose (70-99(Fasting)) mg/dl Calcium (8.5-10.1) mg/dl Total Bilirubin (0.2-1.0) mg/dl AST (13-39) U/L ALT (7-52) U/L Alkaline Phosphatase (34-104) U/L Total Protein (6.0-8.3) gm/dl Albumin (3.4-5.0) gm/dl Globulin (2.5-4.0) gm/dl Albumin/Globulin Ratio (0.9-2) TSH (0.300-4.500) uIu/ml Free T4 (0.61-1.60) ng/dl Urine Color Yellow Urine Appearance Clear (Clear) Urine pH 5.0 (4.5-7.5) Ur Specific [place] 1.023 (1.000-1.030) Urine Protein Negative (Negative) Urine Glucose (UA) Negative (Negative) Urine Ketones Trace H (Negative) Urine Blood 3+ H (Negative) Urine Nitrite Negative (Negative) Urine Bilirubin Negative (Negative) Urine Urobilinogen Negative (Negative) Ur Leukocyte Esterase Negative (Negative) Urine WBC (Auto) 1-5 (0-5) /hpf Urine RBC (Auto) >30 H (0-4) /hpf U Hyaline Cast (Auto) 1-5 (0-5) /lpf U Epithel Cells (Auto) 5-10 H (0-5) /lpf Urine Bacteria (Auto) Negative (Negative) Urine Test Negative (Negative) Salicylates (3.0-30) mg/dl Urine Opiates Screen (Neg) Ur Methadone, Qual (Neg) Acetaminophen (10-30) ug/ml Urine Barbiturates (Neg) Ur Phencyclidine (PCP) (Neg) U Amphetamin/Meth Scrn (Neg) MDMA (Ecstasy) Screen (Neg) U Benzodiazepines Scrn (Neg) Ur Cocaine Metabolite (Neg) U Marijuana (THC) Screen (Neg) Ethyl Alcohol mg/dL (<10.0) mg/dl SARS-CoV-2, RNA, NAAT NEGATIVE (NEGATIVE) 05/15/21 05/15/21 05/15/21 Range/Units 16:26 16:58 16:58 WBC 9.31 (4.8-10.8) K/uL RBC 4.59 (4.2-5.4) M/uL Hgb 14.0 (12.0-16.0) g/dL Hct 42.0 (37-47) % MCV 91.5 (80-100) fL MCH 30.5 (25-34) pg MCHC 33.3 (32-36) g/dL RDW Std Deviation 46.9 H (36.4-46.3) fL RDW Coeff of Nellie 13.9 (11.5-14.5) % Plt Count 460 H (130-400) K/uL MPV 10.0 (7.4-10.4) fL Immature Gran % (Auto) 0.2 % Neut % (Auto) 60.8 % Lymph % (Auto) 28.8 % Luce % (Auto) 7.6 % Eos % (Auto) 2.3 % Baso % (Auto) 0.3 % Neut # (Auto) 5.66 (1.4-6.5) K/uL Lymph # (Auto) 2.68 (1.2-3.4) K/uL Luce # (Auto) 0.71 H (0.11-0.59) K/uL Eos # (Auto) 0.21 (0-0.5) K/uL Baso # (Auto) 0.03 (0-0.2) K/uL Immature Gran # (Auto) 0.02 (0.00-0.02) K/uL Sodium 137 (136-145) mmol/L Potassium 3.8 (3.5-5.1) mmol/L Chloride 105 (98-107) mmol/L Carbon Dioxide 25 (21-32) mmol/L Anion Gap 7 (3-11) BUN 15 (6-23) mg/dl Creatinine 1.02 (0.6-1.2) mg/dl Est Cr Clr Drug Dosing 124.5 ml/min Est GFR ( Amer) 85.5 ml/min Est GFR (Non-Af Amer) 73.8 ml/min BUN/Creatinine Ratio 14.7 (10-20) Glucose 86 (70-99(Fasting)) mg/dl Calcium 8.9 (8.5-10.1) mg/dl Total Bilirubin 0.4 (0.2-1.0) mg/dl AST 26 (13-39) U/L ALT 47 (7-52) U/L Alkaline Phosphatase 78 (34-104) U/L Total Protein 6.9 (6.0-8.3) gm/dl Albumin 3.9 (3.4-5.0) gm/dl Globulin 3.0 (2.5-4.0) gm/dl Albumin/Globulin Ratio 1.3 (0.9-2) TSH (0.300-4.500) uIu/ml Free T4 (0.61-1.60) ng/dl Urine Color Urine Appearance (Clear) Urine pH (4.5-7.5) Ur Specific [place] (1.000-1.030) Urine Protein (Negative) Urine Glucose (UA) (Negative) Urine Ketones (Negative) Urine Blood (Negative) Urine Nitrite (Negative) Urine Bilirubin (Negative) Urine Urobilinogen (Negative) Ur Leukocyte Esterase (Negative) Urine WBC (Auto) (0-5) /hpf Urine RBC (Auto) (0-4) /hpf U Hyaline Cast (Auto) (0-5) /lpf U Epithel Cells (Auto) (0-5) /lpf Urine Bacteria (Auto) (Negative) Urine Test (Negative) Salicylates (3.0-30) mg/dl Urine Opiates Screen Neg (Neg) Ur Methadone, Qual Neg (Neg) Acetaminophen (10-30) ug/ml Urine Barbiturates Neg (Neg) Ur Phencyclidine (PCP) Neg (Neg) U Amphetamin/Meth Scrn Neg (Neg) MDMA (Ecstasy) Screen Neg (Neg) U Benzodiazepines Scrn Neg (Neg) Ur Cocaine Metabolite Neg (Neg) U Marijuana (THC) Screen Pos H (Neg) Ethyl Alcohol mg/dL (<10.0) mg/dl SARS-CoV-2, RNA, NAAT (NEGATIVE) 05/15/21 05/15/21 05/15/21 Range/Units 16:58 16:58 16:58 WBC (4.8-10.8) K/uL RBC (4.2-5.4) M/uL Hgb (12.0-16.0) g/dL Hct (37-47) % MCV (80-100) fL MCH (25-34) pg MCHC (32-36) g/dL RDW Std Deviation (36.4-46.3) fL RDW Coeff of Nellie (11.5-14.5) % Plt Count (130-400) K/uL MPV (7.4-10.4) fL Immature Gran % (Auto) % Neut % (Auto) % Lymph % (Auto) % Luce % (Auto) % Eos % (Auto) % Baso % (Auto) % Neut # (Auto) (1.4-6.5) K/uL Lymph # (Auto) (1.2-3.4) K/uL Luce # (Auto) (0.11-0.59) K/uL Eos # (Auto) (0-0.5) K/uL Baso # (Auto) (0-0.2) K/uL Immature Gran # (Auto) (0.00-0.02) K/uL Sodium (136-145) mmol/L Potassium (3.5-5.1) mmol/L Chloride (98-107) mmol/L Carbon Dioxide (21-32) mmol/L Anion Gap (3-11) BUN (6-23) mg/dl Creatinine (0.6-1.2) mg/dl Est Cr Clr Drug Dosing ml/min Est GFR ( Amer) ml/min Est GFR (Non-Af Amer) ml/min BUN/Creatinine Ratio (10-20) Glucose (70-99(Fasting)) mg/dl Calcium (8.5-10.1) mg/dl Total Bilirubin (0.2-1.0) mg/dl AST (13-39) U/L ALT (7-52) U/L Alkaline Phosphatase (34-104) U/L Total Protein (6.0-8.3) gm/dl Albumin (3.4-5.0) gm/dl Globulin (2.5-4.0) gm/dl Albumin/Globulin Ratio (0.9-2) TSH 6.601 H (0.300-4.500) uIu/ml Free T4 0.95 (0.61-1.60) ng/dl Urine Color Urine Appearance (Clear) Urine pH (4.5-7.5) Ur Specific [place] (1.000-1.030) Urine Protein (Negative) Urine Glucose (UA) (Negative) Urine Ketones (Negative) Urine Blood (Negative) Urine Nitrite (Negative) Urine Bilirubin (Negative) Urine Urobilinogen (Negative) Ur Leukocyte Esterase (Negative) Urine WBC (Auto) (0-5) /hpf Urine RBC (Auto) (0-4) /hpf U Hyaline Cast (Auto) (0-5) /lpf U Epithel Cells (Auto) (0-5) /lpf Urine Bacteria (Auto) (Negative) Urine Test (Negative) Salicylates < 3.0 L (3.0-30) mg/dl Urine Opiates Screen (Neg) Ur Methadone, Qual (Neg) Acetaminophen < 3 L (10-30) ug/ml Urine Barbiturates (Neg) Ur Phencyclidine (PCP) (Neg) U Amphetamin/Meth Scrn (Neg) MDMA (Ecstasy) Screen (Neg) U Benzodiazepines Scrn (Neg) Ur Cocaine Metabolite (Neg) U Marijuana (THC) Screen (Neg) Ethyl Alcohol mg/dL < 10.0 (<10.0) mg/dl SARS-CoV-2, RNA, NAAT (NEGATIVE) Administered Medications Discontinued Medications Lorazepam (Lorazepam 1 Mg Tab) 1 mg SL NOW STA Stop: 05/15/21 17:45 Last Admin: 05/15/21 17:57 Dose: 1 mg Documented by: [id number] Discharge Plan Visit Data Chief Complaint: Mental Health Evaluation Stated Complaint: DEPRESSION, SUICIDAL THOUGHTS, ED Provider: Nate Rivas Discharge Problem: Depression with suicidal ideation, Anxiety, Tobacco use Patient Disposition: Admitted As Inpatient Discharge Instructions Interventions: ED Discharge Assessment Last Done: 05/15/21 21:11
[2021-05-15 16:45] LABS: Appearance Urine Clear (Clear); Bacteria Urine Automated Negative (Negative); Bilirubin Urine Negative (Negative); Blood Urine 3+ (Negative); Color Urine Yellow; Glucose Urine UA Negative (Negative); Ketones Urine Trace (Negative); Leukocyte Esterase Urine Negative (Negative); Nitrite Urine Negative (Negative); Protein Urine Negative (Negative); RBC Urine Automated >30 /hpf (0-4); Specific Gravity Urine 1.023 (1.000-1.030); Urobilinogen Urine Negative (Negative)
[2021-05-15 16:46] LABS: Pregnancy Test, Urine Negative (Negative)
[2021-05-15 17:14] LABS: Basophils # (auto) 0.03 K/uL (0-0.2); Basophils % (auto) 0.3 %; Eosinophils # (auto) 0.21 K/uL (0-0.5); Eosinophils % (auto) 2.3 %; Immature Granulocytes # (auto) 0.02 K/uL (0.00-0.02); Immature Granulocytes % (auto) 0.2 %; Lymphocytes # (auto) 2.68 K/uL (1.2-3.4); Lymphocytes % (auto) 28.8 %; Mean Corpuscular Hemoglobin 30.5 pg (25-34); Mean Corpuscular Hgb Conc 33.3 g/dL (32-36); Mean Corpuscular Volume 91.5 fL (80-100); Monocytes # (auto) 0.71 K/uL (0.11-0.59); Monocytes % (auto) 7.6 %; Neutrophils # (auto) 5.66 K/uL (1.4-6.5); Neutrophils % (auto) 60.8 %; Platelet Count 460 K/uL (130-400); RDW Coefficient of Variation 13.9 % (11.5-14.5); RDW Standard Deviation 46.9 fL (36.4-46.3); Red Blood Count 4.59 M/uL (4.2-5.4); White Blood Count 9.31 K/uL (4.8-10.8)
[2021-05-15 17:43] LABS: Acetaminophen < 3 ug/ml (10-30); Salicylate < 3.0 mg/dl (3.0-30)
[2021-05-15] MEDS ORDERED: LORazepam 1 MG TAB SL STA (17:44)
[2021-05-15 17:45] LABS: Albumin Globulin Ratio 1.3 (0.9-2); Albumin Level 3.9 gm/dl (3.4-5.0); BUN Creatinine Ratio 14.7 (10-20); Bilirubin,Total 0.4 mg/dl (0.2-1.0); Calcium 8.9 mg/dl (8.5-10.1); Creatinine Clr Calc Pharmacy 124.5 ml/min; Est GFR (African American) 85.5 ml/min; Est GFR (Non-African American) 73.8 ml/min; Potassium 3.8 mmol/L (3.5-5.1); Total Protein 6.9 gm/dl (6.0-8.3)
[2021-05-15 17:50] LABS: Thyroid Stimulating Hormone 6.601 uIu/ml (0.300-4.500)
[2021-05-15 18:24] LABS: T4 Free Thyroxine 0.95 ng/dl (0.61-1.60)
[2021-05-15] MEDS ORDERED: SODIUM CHLORIDE 0.65% NA SOLN 45 ML (OCEAN) PRN (21:00)
[2021-05-15] MEDS ORDERED: MAGNESIUM HYDROXIDE SUSP 30 ML UDC PO PRN (21:00)
[2021-05-15] MEDS ORDERED: BISMUTH SUBSALICYLATE LIQD 236 ML PO PRN (21:00)
[2021-05-15] MEDS ORDERED: ACETAMINOPHEN 325 MG TAB PO PRN (21:00)
[2021-05-15] MEDS ORDERED: ALUMINUM/MAGNESIUM SUSP 30 ML UDC PO PRN (21:00)
[2021-05-15] MEDS ORDERED: hydrOXYzine HCl 25 MG TAB PO PRN (21:00)
[2021-05-15 22:28] LABS: Amphetamines+Metham, Urine Neg (Neg); Barbiturates, Urine Neg (Neg); Benzodiazepine, Urine Neg (Neg); Cocaine, Urine Neg (Neg); MDMA (Ecstacy), Urine Neg (Neg); Methadone, Urine Neg (Neg); Opiate, Urine Neg (Neg); Phencyclidine, Urine Neg (Neg)
[2021-05-16] MEDS: DULoxetine HCL 30 MG CAP PO SCH ×2 (00:27→21:28)
[2021-05-16] MEDS: hydrOXYzine HCl 25 MG TAB PO PRN ×2 (10:11→15:31)
--- NOTE | 2021-05-16 10:33 | History & Physical ---
Date of Service May 16, 2021 Impression / Recommendations Impression 30 yo female with longstanding history of depression and ADHD presents with worsening anxiety in the context of multiple life stressors/transitions. She has been acutely suicidal for the past week and in fact looked up how to complete suicide with her prescription beta cheryl and went as far as to write a letter and say goodbye to friends. She believes she was functioning better when her ADHD was treated; she denies a hx of HTN or thyroid disease. 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 (1) Depression with suicidal ideation: (2) Anxiety: (3) Attention deficit disorder (ADD) in adult: (4) TSH elevation: The patient was admitted to the [facility] ([facility] health unit) on q15 min checks (behavioral with suicide precautions) for safety. The patient will participate in group, recreational, and milieu therapies and will be offered additional individual and family sessions as clinically appropriate. Risks/benefits/alternatives reviewed re: her current medication. Propranolol and Ativan prns will be d/c in favor of a trial of Vistaril 25 mg during day prn and treating her ADHD. Vyvanse is non-formulary. Risks/benefits/alternatives reviewed as she denies arrhythmia, family hx of sudden /aneurysm, etc and has tolerated sitmulants well for decades. 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 She has been screened for substance use and counseled re: addictive potential and is at low risk for misuse/diversion. She was counseled re: her TSH elevation and normal thyroid hormone and that f/u with PCP is recommended for recheck in 6 weeks. Inventory Assets Strengths: intelligent, self aware, love of son Needs: ongoing support, family session Risk Factors Assessment Male: No : Yes Do You Have Access To A Gun?: No (will confirm that spouse has secured) Mental Health Diagnoses: Yes Substance Use Disorders: No Previous Attempt: No Previous Psychiatric Hospitalization: No Protective Factors Assessment : Yes Responsible for Young Children: Yes Employed: Yes ([employer]) Stable Relationships: Yes Supportive Family: Yes Good Rapport with Provider: Yes Psychiatric History Identifying Data SHERRIE WEINER is a 30-year-old F who currently lives in [facility], has a history of depression, and was admitted on 05/15/21 21:19 on a 201 voluntary commitment for SI with plan. Chief Complaint "I looked up how much propranolol it would take, called my friends, and wrote a note to my son". History of Present Illness Sherrie reports frequent thoughts of overdosing on propranolol this week just so "all this stress would end". 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 She started saying goodbye to people and knew that "something needed to change". She came to ED at the recommendation of her outpatient therapist. Sherrie has a history of ADHD since childhood and depression "as long as I can remember". She states that her symptoms have been worse following the of her grandfather in December 2020 as she was always closer to him than her father. 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 Finances are tight and she and her have been having couples sessions with her therapist to work on their marital issues. Her is not her son's biological father but has been involved since he was 1 year old. Her son "saved my life" in that she stopped "partying and grew up" but parenting him has been challenging as recently diagnosed on the autism spectrum in March. She reports the diagnosis was not a surprise but stressful as now final. It will open doors to new services for him in but this also requires a lot of coordination with communicating with his aide, teacher, other members of his team. JOSE hasn't helped as his schedule is constantly disrupted and he has difficulties with transitions. She's been having more frequent panic attacks as "my mind is always racing" with worries, even anxious dreams at night but states that Vistaril 50 mg is effective. She doesn't find propranolol or Ativan particularly helpful "though they used to". She has been tried on multiple medications over the years and on/off ADHD medications. She struggles with mood and anxiety on ADHD medications but it's typically better in that she is more productive and can organize her thoughts. She had a period of "hyper"productivity on Adderall trial but otherwise denies symptoms of hypomania. Past Psychiatric History Current Psychiatric Diagnosis: depression with SI, anxiety Outpatient Services: [facility] Previous Psych Admissions: none Do You Have Access To A Gun?: No (will confirm that spouse has secured) History of Previous Suicide Attempt: No Describe Attempts in the Past: NA Past Medication Trials: Klonopin, Xanax, Ativan, Buspar ("mental side effects"), Lexapro, Lamictal, Wellbutrin SR, Sertraline ("mental side effects"), Cymbalta 120 mg caused significant jitteriness, Trintellix briefly with samples with Cymbalta "not good", propranolol, Vistaril (hs only), Vyvanse (max 40 mg per PDMP, ?affective blunting on 40 mg but "way better than this"), Adderall XR, Jornay Allergies Allergy/AdvReac Type Severity Reaction Status Date / Time Penicillins Allergy Intermediate HIVES Verified 05/15/21 16:48 buspirone [From BuSpar] AdvReac Severe BAD MENTAL Verified 05/15/21 16:48 HEALTH SIDE EFFECTS sertraline AdvReac Severe BAD MENTAL Verified 05/15/21 16:48 HEALTH SIDE EFFECTS cortisone AdvReac Intermediate DROPS Verified 05/15/21 16:48 BLOOD PRESSURE AND PASSED OUT doxycycline AdvReac Intermediate GI UPSET Verified 05/15/21 16:48 Home Medications Medication Instructions Recorded Confirmed Type aspirin 81 mg chewable tablet 81 mg PO QAM 09/09/19 05/15/21 History (Aspirin Childrens) duloxetine 30 mg capsule,delayed 30 mg PO HS 05/15/21 05/16/21 History release duloxetine 60 mg capsule,delayed 60 mg PO HS 05/15/21 05/16/21 History release furosemide 40 mg tablet (Lasix) 40 mg PO DAILY PRN 05/15/21 05/15/21 History lorazepam 0.5 mg tablet 0.5 mg PO BID PRN 05/15/21 05/15/21 History propranolol 10 mg tablet 10 mg PO BID PRN 05/15/21 05/15/21 History hydroxyzine HCl 50 mg tablet 50 mg PO HS 05/16/21 05/16/21 History lisdexamfetamine 30 mg capsule 30 mg PO QAM #30 cap 05/16/21 Rx (Vyvanse) Family History Family Mental Health History Comment: believes parents both have depression (undiagnosed); 2 sisters with depression Alcohol History Hx of Alcohol Use Over the Past 12 Months: Yes (social once a month) AUDIT Total Score: 1 Smoking Use Have You Smoked or Used Tobacco Products in the Last 30 Days: Yes tobacco type: cigarettes Smoking Status: Light tobacco smoker Substance History Hx of Prescription Med Misuse Over the Past 12 Months: No Hx of Over the Counter Med Misuse Over the Past 12 Months: No Hx of Inhalent Misuse Over the Past 12 Months: No Hx of Organic Substance Use Over the Past 12 Months: Yes (cbd oil vaporizer) Hx of Illegal Substances/Street Drug Use Over Past 12 Months: No Problems as a Result of Past Substance Use: None Identified Personal History Living Arrangements: Home Highest Grade Completed: Vocational Training Highest Grade Completed Comment: recently got [employer] degree Marital Status: Number Of Children: 1 Beliefs That Will Affect Care: None Current Legal Problems: No Hx Legal Problems: No Hx Traumatic Life Events: Yes (2nd trimester loss in 2019 "a girl") Patient History Medical History (Updated 05/16/21 @ 10:58 by Katarzyna Meehan MD) Ankle fracture, right Asthma Attempting to conceive Closed right hip fracture Closed right hip fracture Nipple lesion Renal calculi Surgical History H/O bone graft 2004 H/O breast biopsy H/O section Status post hip surgery Family History Mother Hypertension Irritable bowel syndrome Father Diabetes Irritable bowel syndrome Grandfather (Maternal) Myocardial infarction Denies family history of Ovarian cancer Prostate cancer Crohn's disease Breast cancer Colorectal cancer Stroke Social History Smoking Status: Light tobacco smoker Age Started Using Tobacco: 21; Age Quit Using Tobacco: 28; packs per day: 0.25; Years Smoked: 8; Cigarettes Per Day: 5 or 6 a day; Second Hand Exposure: No; Hx Alcohol Use: No Hx Substance Use: No Preferred Language: Botswanan Communication Ability: Effective Visual Impairment: No Limitations Hearing Ability: Normal Space Control Supervisor Required: No Beliefs That Will Affect Care: None marital status: Current Living Situation: Spouse current occupational status: employed 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 Feels Safe at Home: Yes Childhood Exposure to Second-Hand Smoke: Yes (father) Dental Care, Regularly: Yes Physical Activity Frequency: 1-2 Times per Week Assistive Devices: None Review of Systems Review of Systems: All systems reviewed & are unremarkable except as noted in HPI & below Physical Exam Psychiatric: Orientation: alert and oriented x 3 Apperance: appropriately dressed and appropriately groomed Eye Contact: good eye contact Motor Behavior: no abnormal motor movements Speech: normal rate/rhythm/volume of speech Affect: + depressed affect Mood: + depressed mood Thought Process: goal directed thought process Thought Content: reality based without delusions Suicidal Thoughts: denies suicidal intent; + reports suicidal thoughts and + reports suicidal plan Homicidal Thoughts: denies homicidal thoughts Hallucinations: no auditory hallucinations and no visual hallucinations Cognition: attention grossly intact and language grossly intact Estimated Intelligence: consistent with education level Insight: + fair insight Vital Signs (Past 24 Hours): Last Vital Signs Temp 36.8 C 05/16/21 06:38 Pulse 84 05/16/21 06:39 Resp 16 05/16/21 06:38 BP 143/96 H 05/16/21 06:39 Pulse Ox 96 05/15/21 18:09 Exam Statement: A physical exam was performed in the ED by Dr. Rivas for the purposes of medical clearance. I accept that physical as correct and adequate for the purposes of the inpatient physical exam. Results & Data ([facility]) Laboratory Results Laboratory Results - last 24 hr 05/15/21 05/15/21 05/15/21 16:22 16:26 16:26 WBC RBC Hgb Hct MCV MCH MCHC RDW Std Deviation RDW Coeff of Nellie Plt Count MPV Immature Gran % (Auto) Neut % (Auto) Lymph % (Auto) Kay % (Auto) Eos % (Auto) Baso % (Auto) Neut # (Auto) Lymph # (Auto) Kay # (Auto) Eos # (Auto) Baso # (Auto) Immature Gran # (Auto) Sodium Potassium Chloride Carbon Dioxide Anion Gap BUN Creatinine Est Cr Clr Drug Dosing Est GFR ( Amer) Est GFR (Non-Af Amer) BUN/Creatinine Ratio Glucose Calcium Total Bilirubin AST ALT Alkaline Phosphatase Total Protein Albumin Globulin Albumin/Globulin Ratio TSH Free T4 Urine Color Yellow Urine Appearance Clear Urine pH 5.0 Ur Specific [place] 1.023 Urine Protein Negative Urine Glucose (UA) Negative Urine Ketones Trace H Urine Blood 3+ H Urine Nitrite Negative Urine Bilirubin Negative Urine Urobilinogen Negative Ur Leukocyte Esterase Negative Urine WBC (Auto) 1-5 Urine RBC (Auto) >30 H U Hyaline Cast (Auto) 1-5 U Epithel Cells (Auto) 5-10 H Urine Bacteria (Auto) Negative Urine Test Negative Salicylates Urine Opiates Screen Ur Methadone, Qual Acetaminophen Urine Barbiturates Ur Phencyclidine (PCP) U Amphetamin/Meth Scrn MDMA (Ecstasy) Screen U Benzodiazepines Scrn Ur Cocaine Metabolite U Marijuana (THC) Screen U Marijuana THC Carboxy Drug Screen Comment Ethyl Alcohol mg/dL SARS-CoV-2, RNA, NAAT NEGATIVE 05/15/21 05/15/21 05/15/21 16:26 16:26 16:26 WBC RBC Hgb Hct MCV MCH MCHC RDW Std Deviation RDW Coeff of Nellie Plt Count MPV Immature Gran % (Auto) Neut % (Auto) Lymph % (Auto) Kay % (Auto) Eos % (Auto) Baso % (Auto) Neut # (Auto) Lymph # (Auto) Kay # (Auto) Eos # (Auto) Baso # (Auto) Immature Gran # (Auto) Sodium Potassium Chloride Carbon Dioxide Anion Gap BUN Creatinine Est Cr Clr Drug Dosing Est GFR ( Amer) Est GFR (Non-Af Amer) BUN/Creatinine Ratio Glucose Calcium Total Bilirubin AST ALT Alkaline Phosphatase Total Protein Albumin Globulin Albumin/Globulin Ratio TSH Free T4 Urine Color Urine Appearance Urine pH Ur Specific [place] Urine Protein Urine Glucose (UA) Urine Ketones Urine Blood Urine Nitrite Urine Bilirubin Urine Urobilinogen Ur Leukocyte Esterase Urine WBC (Auto) Urine RBC (Auto) U Hyaline Cast (Auto) U Epithel Cells (Auto) Urine Bacteria (Auto) Urine Test Salicylates Urine Opiates Screen Neg Ur Methadone, Qual Neg Acetaminophen Urine Barbiturates Neg Ur Phencyclidine (PCP) Neg U Amphetamin/Meth Scrn Neg MDMA (Ecstasy) Screen Neg U Benzodiazepines Scrn Neg Ur Cocaine Metabolite Neg U Marijuana (THC) Screen Pos H U Marijuana THC Carboxy Pending Cancelled Drug Screen Comment Pending Cancelled Ethyl Alcohol mg/dL SARS-CoV-2, RNA, NAAT 05/15/21 05/15/21 05/15/21 16:58 16:58 16:58 WBC 9.31 RBC 4.59 Hgb 14.0 Hct 42.0 MCV 91.5 MCH 30.5 MCHC 33.3 RDW Std Deviation 46.9 H RDW Coeff of Nellie 13.9 Plt Count 460 H MPV 10.0 Immature Gran % (Auto) 0.2 Neut % (Auto) 60.8 Lymph % (Auto) 28.8 Kay % (Auto) 7.6 Eos % (Auto) 2.3 Baso % (Auto) 0.3 Neut # (Auto) 5.66 Lymph # (Auto) 2.68 Kay # (Auto) 0.71 H Eos # (Auto) 0.21 Baso # (Auto) 0.03 Immature Gran # (Auto) 0.02 Sodium 137 Potassium 3.8 Chloride 105 Carbon Dioxide 25 Anion Gap 7 BUN 15 Creatinine 1.02 Est Cr Clr Drug Dosing 124.5 Est GFR ( Amer) 85.5 Est GFR (Non-Af Amer) 73.8 BUN/Creatinine Ratio 14.7 Glucose 86 Calcium 8.9 Total Bilirubin 0.4 AST 26 ALT 47 Alkaline Phosphatase 78 Total Protein 6.9 Albumin 3.9 Globulin 3.0 Albumin/Globulin Ratio 1.3 TSH 6.601 H Free T4 0.95 Urine Color Urine Appearance Urine pH Ur Specific [place] Urine Protein Urine Glucose (UA) Urine Ketones Urine Blood Urine Nitrite Urine Bilirubin Urine Urobilinogen Ur Leukocyte Esterase Urine WBC (Auto) Urine RBC (Auto) U Hyaline Cast (Auto) U Epithel Cells (Auto) Urine Bacteria (Auto) Urine Test Salicylates Urine Opiates Screen Ur Methadone, Qual Acetaminophen Urine Barbiturates Ur Phencyclidine (PCP) U Amphetamin/Meth Scrn MDMA (Ecstasy) Screen U Benzodiazepines Scrn Ur Cocaine Metabolite U Marijuana (THC) Screen U Marijuana THC Carboxy Drug Screen Comment Ethyl Alcohol mg/dL SARS-CoV-2, RNA, NAAT 05/15/21 05/15/21 16:58 16:58 WBC RBC Hgb Hct MCV MCH MCHC RDW Std Deviation RDW Coeff of Nellie Plt Count MPV Immature Gran % (Auto) Neut % (Auto) Lymph % (Auto) Kay % (Auto) Eos % (Auto) Baso % (Auto) Neut # (Auto) Lymph # (Auto) Kay # (Auto) Eos # (Auto) Baso # (Auto) Immature Gran # (Auto) Sodium Potassium Chloride Carbon Dioxide Anion Gap BUN Creatinine Est Cr Clr Drug Dosing Est GFR ( Amer) Est GFR (Non-Af Amer) BUN/Creatinine Ratio Glucose Calcium Total Bilirubin AST ALT Alkaline Phosphatase Total Protein Albumin Globulin Albumin/Globulin Ratio TSH Free T4 Urine Color Urine Appearance Urine pH Ur Specific [place] Urine Protein Urine Glucose (UA) Urine Ketones Urine Blood Urine Nitrite Urine Bilirubin Urine Urobilinogen Ur Leukocyte Esterase Urine WBC (Auto) Urine RBC (Auto) U Hyaline Cast (Auto) U Epithel Cells (Auto) Urine Bacteria (Auto) Urine Test Salicylates < 3.0 L Urine Opiates Screen Ur Methadone, Qual Acetaminophen < 3 L Urine Barbiturates Ur Phencyclidine (PCP) U Amphetamin/Meth Scrn MDMA (Ecstasy) Screen U Benzodiazepines Scrn Ur Cocaine Metabolite U Marijuana (THC) Screen U Marijuana THC Carboxy Drug Screen Comment Ethyl Alcohol mg/dL < 10.0 SARS-CoV-2, RNA, NAAT Current Inpatient Medications Current Inpatient Medications: Current Inpatient Medications Acetaminophen (Acetaminophen 325 Mg Tab) 650 mg PO Q4H PRN PRN Reason: Headache or Minor Fever Stop: 06/14/21 20:59 Al Hydrox/Mg Hydrox/Simethicone (Aluminum/Magnesium Susp 30 Ml Udc) 30 ml PO Q4H PRN PRN Reason: GI Upset Stop: 06/14/21 20:59 Bismuth Subsalicylate (Bismuth Subsalicylate Liqd 236 Ml) 15 ml PO PRN PRN PRN Reason: Loose Stool Stop: 06/14/21 20:59 Duloxetine HCl (Duloxetine Hcl 30 Mg Cap) 90 mg PO HS PANCHITO Stop: 06/14/21 23:33 Last Admin: 05/16/21 00:27 Dose: 90 mg Documented by: Hydroxyzine HCl (Hydroxyzine Hcl 25 Mg Tab) 50 mg PO HSZ PRN PRN Reason: Insomnia Stop: 06/14/21 20:59 Last Admin: 05/16/21 00:28 Dose: 50 mg Documented by: Hydroxyzine HCl (Hydroxyzine Hcl 25 Mg Tab) 25 mg PO Q4H PRN PRN Reason: Anxiety Stop: 06/14/21 20:59 Magnesium Hydroxide (Magnesium Hydroxide Susp 30 Ml Udc) 30 ml PO DAILY PRN PRN Reason: Constipation Stop: 06/14/21 20:59 Sodium Chloride (Sodium Chloride 0.65% Na Soln 45 Ml ([place])) 1 - 2 sprays NA PRN PRN PRN Reason: Nasal Dryness/Congestion Stop: 06/14/21 20:59
[2021-05-16] MEDS ORDERED: FUROSEMIDE 40 MG TAB PO PRN (11:05)
[2021-05-16] MEDS ORDERED: ASPIRIN 81 MG CHEW PO SCH (11:15)
[2021-05-16] MEDS: hydrOXYzine HCl 25 MG TAB PO SCH (21:29)
[2021-05-16] MEDS ORDERED: DULoxetine HCL 30 MG CAP PO SCH (22:00)
[2021-05-17] MEDS: ASPIRIN 81 MG ECTAB PO SCH (08:18)
[2021-05-17] MEDS ORDERED: VYVANSE PO SCH (09:00)
--- NOTE | 2021-05-17 09:48 | Psychiatric Progress Note ---
Date of Service May 17, 2021 Impression / Recommendations Impression 30 yo female with longstanding history of depression and ADHD presents with worsening anxiety in the context of multiple life stressors/transitions. She has been acutely suicidal for the past week and in fact looked up how to complete suicide with her prescription beta cheryl and went as far as to write a letter and say goodbye to friends. She believes she was functioning better when her ADHD was treated; she denies a hx of HTN or thyroid disease. 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 05/17/21: some improvement with support of unit. Remains depressed with ongoing wish last pm. (1) Depression with suicidal ideation: (2) Anxiety: (3) Attention deficit disorder (ADD) in adult: (4) TSH elevation: 05/17/21: Risks/benefits/alternative treatments reviewed re: adjunctive Abilify 2.5 mg for depression. Will wait to determin response to Vyvanse today prior to ordering. Discussion included but was not limited need for monitoring for TD and metabolic issues and fasting labs ordered for the am. Decrease Hydroxyzine to 10 mg for daytime prn doses on a trial basis as would be preferred to benzo. 05/16/21: The patient was admitted to the [facility] ([facility]) on q15 min checks (behavioral with suicide precautions) for safety. The patient will participate in group, recreational, and milieu therapies and will be offered additional individual and family sessions as clinically appropriate. Risks/benefits/alternatives reviewed re: her current medication. Propranolol and Ativan prns will be d/c in favor of a trial of Vistaril 25 mg during day prn and treating her ADHD. Vyvanse is non-formulary. Risks/benefits/alternatives reviewed as she denies arrhythmia, family hx of sudden /aneurysm, etc and has tolerated sitmulants well for decades. 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 She has been screened for substance use and counseled re: addictive potential and is at low risk for misuse/diversion. She was counseled re: her TSH elevation and normal thyroid hormone and that f/u with PCP is recommended for recheck in 6 weeks. Inventory Assets Strengths: intelligent, self aware, love of son Needs: ongoing support, family session Risk Factors Assessment Male: No : Yes Do You Have Access To A Gun?: No (will confirm that spouse has secured) Mental Health Diagnoses: Yes Substance Use Disorders: No Previous Attempt: No Previous Psychiatric Hospitalization: No Protective Factors Assessment : Yes Responsible for Young Children: Yes Employed: Yes ([employer]) Stable Relationships: Yes Supportive Family: Yes Good Rapport with Provider: Yes Interval History Identifying Information RON WEINER is a 30-year-old F who currently lives in [facility], has a history of depression, and was admitted on 05/15/21 21:19 on a 201 voluntary commitment for SI with plan. Chief Complaint "I just felt like if I had just done it I wouldn't have to deal with all of this". Review of Systems Sleep Information Total Hours of Sleep: 5.75 Sleep Comments: pt given vistaril per rn. pt on q-15 minute checks Meal Information Percent Meal Consumed - Breakfast: 50 Percent Meal Consumed - Lunch: 100 Percent Meal Consumed - Dinner: 50 Subjective Subjective Patient was seen & assessed and interval progress reviewed with treatment team. Rates mood low. Had good phone discussion with . Will start Vyvanse today. Patient discussed her past negative response to antidepressant medications before, particularly Zoloft and irritability with Wellbutrin. Reports most benefit from Cymbalta but worries about ongoing level of obsessive thoughts and negative preoccupations. Did use prn Vistaril twice yesterday but caused some sedation. Physical Exam Psychiatric Orientation: alert and oriented x 3 Apperance: appropriately dressed and appropriately groomed Eye Contact: good eye contact Motor Behavior: no abnormal motor movements Speech: normal rate/rhythm/volume of speech Affect: + depressed affect Mood: + depressed mood Thought Process: goal directed thought process Thought Content: reality based without delusions Suicidal Thoughts: denies suicidal plan and denies suicidal intent; + reports suicidal thoughts Homicidal Thoughts: denies homicidal thoughts Hallucinations: no auditory hallucinations and no visual hallucinations Cognition: attention grossly intact and language grossly intact Estimated Intelligence: consistent with education level Insight: + fair insight Vital Signs (Past 24 Hours) Last Vital Signs Temp 36.6 C 05/17/21 06:34 Pulse 75 05/17/21 06:34 Resp 18 05/17/21 06:34 BP 146/97 H 05/17/21 06:34 Pulse Ox 96 05/15/21 18:09 Results & Data ([facility]) Current Inpatient Medications Current Inpatient Medications: Current Inpatient Medications Acetaminophen (Acetaminophen 325 Mg Tab) 650 mg PO Q4H PRN PRN Reason: Headache or Minor Fever Stop: 06/14/21 20:59 Last Admin: 05/17/21 08:19 Dose: 650 mg Documented by: Al Hydrox/Mg Hydrox/Simethicone (Aluminum/Magnesium Susp 30 Ml Udc) 30 ml PO Q4H PRN PRN Reason: GI Upset Stop: 06/14/21 20:59 Aspirin (Aspirin 81 Mg Ectab) 81 mg PO QAM PANCHITO Stop: 06/16/21 08:59 Last Admin: 05/17/21 08:18 Dose: 81 mg Documented by: Bismuth Subsalicylate (Bismuth Subsalicylate Liqd 236 Ml) 15 ml PO PRN PRN PRN Reason: Loose Stool Stop: 06/14/21 20:59 Duloxetine HCl (Duloxetine Hcl 30 Mg Cap) 90 mg PO [facility] Stop: 06/14/21 23:33 Last Admin: 05/16/21 21:28 Dose: 90 mg Documented by: Furosemide (Furosemide 40 Mg Tab) 40 mg PO DAILY PRN PRN Reason: Edema Stop: 06/15/21 11:04 Hydroxyzine HCl (Hydroxyzine Hcl 25 Mg Tab) 50 mg PO HSZ PRN PRN Reason: Insomnia Stop: 06/14/21 20:59 Last Admin: 05/16/21 00:28 Dose: 50 mg Documented by: Hydroxyzine HCl (Hydroxyzine Hcl 25 Mg Tab) 25 mg PO Q4H PRN PRN Reason: Anxiety Stop: 06/14/21 20:59 Last Admin: 05/16/21 15:31 Dose: 25 mg Documented by: Hydroxyzine HCl (Hydroxyzine Hcl 25 Mg Tab) 50 mg PO HS COUNTS INCLUDE 234 BEDS AT THE [facility] Stop: 06/15/21 21:59 Last Admin: 05/16/21 21:29 Dose: 50 mg Documented by: Magnesium Hydroxide (Magnesium Hydroxide Susp 30 Ml Udc) 30 ml PO DAILY PRN PRN Reason: Constipation Stop: 06/14/21 20:59 Miscellaneous (Lisdexamfetamine (Vyvanse) 30 Mg Cap~Order Awaiting Action) 1 ea N/A QS PANCHITO; Protocol Stop: 06/15/21 15:59 Last Admin: 05/17/21 09:13 Dose: Not Given Documented by: Sodium Chloride (Sodium Chloride 0.65% Na Soln 45 Ml ([place])) 1 - 2 sprays NA P RN PRN PRN Reason: Nasal Dryness/Congestion Stop: 06/14/21 20:59 Mental Health & Subst Abuse Tx Psychiatrist Name of Psychiatrist: Demetrice Espinoza Therapist Name of Therapist: Daljit Fountain Post Discharge Appointments Primary Care Physician Name Of Family Doctor: Dom Hanna
[2021-05-17] MEDS ORDERED: LISDEXAMFETAMINE DIMESYLATE PO ONE (11:45)
[2021-05-17] MEDS: hydrOXYzine HCl 10 MG TAB PO PRN ×2 (12:11→16:39)
[2021-05-17] MEDS: DULoxetine HCL 30 MG CAP PO SCH (20:44)
[2021-05-17] MEDS: hydrOXYzine HCl 25 MG TAB PO SCH (20:45)
[2021-05-18] MEDS: hydrOXYzine HCl 10 MG TAB PO PRN ×2 (08:23→12:50)
[2021-05-18] MEDS: ASPIRIN 81 MG ECTAB PO SCH (08:24)
[2021-05-18] MEDS: LISDEXAMFETAMINE DIMESYLATE PO SCH (09:59)
[2021-05-18] MEDS: PATIENT'S OWN CONTROLLED MED 1 PO SCH (10:01)
[2021-05-18 10:02] LABS: Chol HDL Ratio 6.7 (0-5)
--- NOTE | 2021-05-18 11:15 | Psychiatric Progress Note ---
Date of Service May 18, 2021 Impression / Recommendations Impression 30 yo female with longstanding history of depression and ADHD presents with worsening anxiety in the context of multiple life stressors/transitions. She has been acutely suicidal for the past week and in fact looked up how to complete suicide with her prescription beta cheryl and went as far as to write a letter and say goodbye to friends. She believes she was functioning better when her ADHD was treated; she denies a hx of HTN or thyroid disease. 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 05/18/21: ongoing depression and guilt (1) Depression with suicidal ideation: (2) Anxiety: (3) Attention deficit disorder (ADD) in adult: (4) TSH elevation: 05/18/21: reviewed metabolic labs and re-reviewed risks with Abilify. Patient agrees to 2.5 mg daily to address mood. 05/17/21: Risks/benefits/alternative treatments reviewed re: adjunctive Abilify 2.5 mg for depression. Will wait to determine response to Vyvanse today prior to ordering. Discussion included but was not limited need for monitoring for TD and metabolic issues and fasting labs ordered for the am. Decrease Hydroxyzine to 10 mg for daytime prn doses on a trial basis as would be preferred to benzo. 05/16/21: The patient was admitted to the [facility] ([facility] mental [facility]) on q15 min checks (behavioral with suicide precautions) for safety. The patient will participate in group, recreational, and milieu therapies and will be offered additional individual and family sessions as clinically appropriate. Risks/benefits/alternatives reviewed re: her current medication. Propranolol and Ativan prns will be d/c in favor of a trial of Vistaril 25 mg during day prn and treating her ADHD. Vyvanse is non-formulary. Risks/benefits/alternatives reviewed as she denies arrhythmia, family hx of sudden /aneurysm, etc and has tolerated sitmulants well for decades. 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 She has been screened for substance use and counseled re: addictive potential and is at low risk for misuse/diversion. She was counseled re: her TSH elevation and normal thyroid hormone and that f/u with PCP is recommended for recheck in 6 weeks. Inventory Assets Strengths: intelligent, self aware, love of son Needs: ongoing support, family session Risk Factors Assessment Male: No : Yes Do You Have Access To A Gun?: No (will confirm that spouse has secured) Mental Health Diagnoses: Yes Substance Use Disorders: No Previous Attempt: No Previous Psychiatric Hospitalization: No Protective Factors Assessment : Yes Responsible for Young Children: Yes Employed: Yes ([employer]) Stable Relationships: Yes Supportive Family: Yes Good Rapport with Provider: Yes Interval History Identifying Information RON WEINER is a 30-year-old F who currently lives in [facility], has a history of depression, and was admitted on 05/15/21 21:19 on a 201 voluntary commitment for SI with plan. Chief Complaint "yesterday was the best I've felt in months" Review of Systems Sleep Information Total Hours of Sleep: 6 Sleep Comments: pt given vistaril per rn. pt on q-15 minute checks Meal Information Percent Meal Consumed - Breakfast: 90 Percent Meal Consumed - Lunch: 100 Percent Meal Consumed - Dinner: 75 Subjective Subjective Patient was seen & assessed and interval progress reviewed with nursing and social work. Reports lower dose of Vistaril is effective. Noticed improved ability to redirect her thoughts and better energy during hours Vyvanse in her system. Continued to have "very negative" thoughts later in evening/overnight, mainly related to guilt over ongoing hospitalization as son said he's mad at her. Meeting with made her feel more hopeful. Physical Exam Psychiatric Orientation: alert and oriented x 3 Apperance: appropriately dressed and appropriately groomed Eye Contact: good eye contact Motor Behavior: no abnormal motor movements Speech: normal rate/rhythm/volume of speech Affect: + depressed affect Mood: + depressed mood Thought Process: goal directed thought process Thought Content: reality based without delusions Suicidal Thoughts: denies suicidal thoughts and denies suicidal plan Homicidal Thoughts: denies homicidal thoughts Hallucinations: no auditory hallucinations and no visual hallucinations Cognition: attention grossly intact and language grossly intact Estimated Intelligence: consistent with education level Insight: + fair insight Vital Signs (Past 24 Hours) Last Vital Signs Temp 36.7 C 05/18/21 06:43 Pulse 86 05/18/21 06:43 Resp 16 05/18/21 06:43 BP 139/97 05/18/21 06:43 Pulse Ox 96 05/15/21 18:09 Results & Data ([facility]) Laboratory Results Laboratory Results - last 24 hr 05/18/21 08:35 Fasting Glucose 88 Triglycerides 125 Cholesterol 202 H LDL Cholesterol, Calc 147 VLDL Cholesterol, Calc 25 HDL Cholesterol 30 Cholesterol/HDL Ratio 6.7 H Current Inpatient Medications Current Inpatient Medications: Current Inpatient Medications Acetaminophen (Acetaminophen 325 Mg Tab) 650 mg PO Q4H PRN PRN Reason: Headache or Minor Fever Stop: 06/14/21 20:59 Last Admin: 05/17/21 08:19 Dose: 650 mg Documented by: Al Hydrox/Mg Hydrox/Simethicone (Aluminum/Magnesium Susp 30 Ml Udc) 30 ml PO Q4H PRN PRN Reason: GI Upset Stop: 06/14/21 20:59 Aspirin (Aspirin 81 Mg Ectab) 81 mg PO QAM PANCHITO Stop: 06/16/21 08:59 Last Admin: 05/18/21 08:24 Dose: 81 mg Documented by: Bismuth Subsalicylate (Bismuth Subsalicylate Liqd 236 Ml) 15 ml PO PRN PRN PRN Reason: Loose Stool Stop: 06/14/21 20:59 Duloxetine HCl (Duloxetine Hcl 30 Mg Cap) 90 mg PO HS PANCHITO Stop: 06/14/21 23:33 Last Admin: 05/17/21 20:44 Dose: 90 mg Documented by: Furosemide (Furosemide 40 Mg Tab) 40 mg PO DAILY PRN PRN Reason: Edema Stop: 06/15/21 11:04 Hydroxyzine HCl (Hydroxyzine Hcl 25 Mg Tab) 50 mg PO HSZ PRN PRN Reason: Insomnia Stop: 06/14/21 20:59 Last Admin: 05/16/21 00:28 Dose: 50 mg Documented by: Hydroxyzine HCl (Hydroxyzine Hcl 25 Mg Tab) 50 mg PO HS PANCHITO Stop: 06/15/21 21:59 Last Admin: 05/17/21 20:45 Dose: 50 mg Documented by: Hydroxyzine HCl (Hydroxyzine Hcl 10 Mg Tab) 10 mg PO Q4 PRN PRN Reason: Anxiety Stop: 06/16/21 11:23 Last Admin: 05/18/21 08:23 Dose: 10 mg Documented by: Lisdexamfetamine Dimesylate (Lisdexamfetamine Dimesylate) 1 ea PO Q24H PANCHITO; Protocol Stop: 06/17/21 08:59 Last Admin: 05/18/21 09:59 Dose: 1 ea Documented by: Magnesium Hydroxide (Magnesium Hydroxide Susp 30 Ml Udc) 30 ml PO DAILY PRN PRN Reason: Constipation Stop: 06/14/21 20:59 Non-Formulary Medication (Patient's Own Controlled Med 1) 1 ea PO DAILY PANCHITO Stop: 06/01/21 08:59 Last Admin: 05/18/21 10:01 Dose: Not Given Documented by: Sodium Chloride (Sodium Chloride 0.65% Na Soln 45 Ml ([place])) 1 - 2 sprays NA PRN PRN PRN Reason: Nasal Dryness/Congestion Stop: 06/14/21 20:59 Mental Health & Subst Abuse Tx Psychiatrist Name of Psychiatrist: Demetrice Espinoza Psychiatrist's Psychiatric Appointment Comment: [address], [place] [address] Therapist Name of Therapist: Daljit Ruiz Therapist's Date of Therapist Appointment: 05/24/21 Time of Therapist Appointment: 4:00 PM Therapy Appointment Comment: Teletherapy Post Discharge Appointments Primary Care Physician Name Of Family Doctor: MARIANO Jackson [facility] Date of Appointment with PCP: 06/29/21 Time of Appointment with PCP: 12:30 PM Provider Appointment Comment: [address], [place] [address]
[2021-05-18] MEDS: ARIPiprazole 5 MG TAB PO SCH (13:22)
[2021-05-18] MEDS: DULoxetine HCL 30 MG CAP PO SCH (20:30)
[2021-05-18] MEDS: hydrOXYzine HCl 25 MG TAB PO SCH (20:31)
[2021-05-19] MEDS: hydrOXYzine HCl 10 MG TAB PO PRN ×2 (06:55→13:29)
[2021-05-19 08:08] LABS: Marijuana Quant, GCMS Urine 52 ng/mL (<5)
[2021-05-19] MEDS: ARIPiprazole 5 MG TAB PO SCH (08:51)
[2021-05-19] MEDS: ASPIRIN 81 MG ECTAB PO SCH (08:52)
[2021-05-19] MEDS: LISDEXAMFETAMINE DIMESYLATE PO SCH (08:52)
[2021-05-19] MEDS: PATIENT'S OWN CONTROLLED MED 1 PO SCH (09:01)
--- NOTE | 2021-05-19 09:58 | Psychiatric Progress Note ---
Date of Service May 19, 2021 Impression / Recommendations Impression 30 yo female with longstanding history of depression and ADHD presents with worsening anxiety in the context of multiple life stressors/transitions. She has been acutely suicidal for the past week and in fact looked up how to complete suicide with her prescription beta cheryl and went as far as to write a letter and say goodbye to friends. She believes she was functioning better when her ADHD was treated; she denies a hx of HTN or thyroid disease. 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 05/19/21: improving (1) Depression with suicidal ideation: (2) Anxiety: (3) Attention deficit disorder (ADD) in adult: (4) TSH elevation: 05/19/21: patient's thyroid profile discussed with PCP office who would support her starting Synthroid 50 mcg in am on empty stomach with f/u panel after 06/24 but before appointment on 06/29/21. Will check on insurance coverage for Abilify. 05/18/21: reviewed metabolic labs and re-reviewed risks with Abilify. Patient agrees to 2.5 mg daily to address mood. 05/17/21: Risks/benefits/alternative treatments reviewed re: adjunctive Abilify 2.5 mg for depression. Will wait to determine response to Vyvanse today prior to ordering. Discussion included but was not limited need for monitoring for TD and metabolic issues and fasting labs ordered for the am. Decrease Hydroxyzine to 10 mg for daytime prn doses on a trial basis as would be preferred to benzo. 05/16/21: The patient was admitted to the [facility] ([facility] mental health unit) on q15 min checks (behavioral with suicide precautions) for safety. The patient will participate in group, recreational, and milieu therapies and will be offered additional individual and family sessions as clinically appropriate. Risks/benefits/alternatives reviewed re: her current medication. Propranolol and Ativan prns will be d/c in favor of a trial of Vistaril 25 mg during day prn and treating her ADHD. Vyvanse is non-formulary. Risks/benefits/alternatives reviewed as she denies arrhythmia, family hx of sudden /aneurysm, etc and has tolerated sitmulants well for decades. 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 She has been screened for substance use and counseled re: addictive potential and is at low risk for m isuse/diversion. She was counseled re: her TSH elevation and normal thyroid hormone and that f/u with PCP is recommended for recheck in 6 weeks. Inventory Assets Strengths: intelligent, self aware, love of son Needs: ongoing support, family session Risk Factors Assessment Male: No : Yes Do You Have Access To A Gun?: No (will confirm that spouse has secured) Mental Health Diagnoses: Yes Substance Use Disorders: No Previous Attempt: No Previous Psychiatric Hospitalization: No Protective Factors Assessment : Yes Responsible for Young Children: Yes Employed: Yes ([employer]) Stable Relationships: Yes Supportive Family: Yes Good Rapport with Provider: Yes Interval History Identifying Information RON WEINER is a 30-year-old F who currently lives in [facility], has a history of depression, and was admitted on 05/15/21 21:19 on a 201 voluntary commitment for SI with plan. Chief Complaint more depressed/anxious in pms Review of Systems Sleep Information Total Hours of Sleep: 6 Sleep Comments: pt given vistaril per rn. pt on q-15 minute checks Meal Information Percent Meal Consumed - Breakfast: 90 Percent Meal Consumed - Lunch: 100 Percent Meal Consumed - Dinner: 50 Subjective Subjective Patient was seen & assessed and interval progress reviewed with treatment team. patient is homesick in pms, harder time redirecting her thoughts. She agrees for to bring her propranolol and Ativan to be destroyed. Physical Exam Psychiatric Orientation: alert and oriented x 3 Apperance: appropriately dressed and appropriately groomed Eye Contact: good eye contact Motor Behavior: no abnormal motor movements Speech: normal rate/rhythm/volume of speech Affect: + depressed affect Mood: + depressed mood Thought Process: goal directed thought process Thought Content: reality based without delusions Suicidal Thoughts: denies suicidal thoughts, denies suicidal plan and denies suicidal intent Homicidal Thoughts: denies homicidal thoughts Hallucinations: no auditory hallucinations and no visual hallucinations Cognition: attention grossly intact and language grossly intact Estimated Intelligence: consistent with education level Insight: + fair insight Vital Signs (Past 24 Hours) Last Vital Signs Temp 36.5 C 05/19/21 06:39 Pulse 105 H 05/19/21 06:40 Resp 16 05/19/21 06:39 BP 125/90 05/19/21 06:40 Pulse Ox 96 05/15/21 18:09 Results & Data ([facility]) Laboratory Results Laboratory Results - last 24 hr 05/15/21 05/18/21 16:26 08:35 Fasting Glucose 88 Triglycerides 125 Cholesterol 202 H LDL Cholesterol, Calc 147 VLDL Cholesterol, Calc 25 HDL Cholesterol 30 Cholesterol/HDL Ratio 6.7 H U Marijuana THC Carboxy 52 H Drug Screen Comment SEE NOTE Current Inpatient Medications Current Inpatient Medications: Current Inpatient Medications Acetaminophen (Acetaminophen 325 Mg Tab) 650 mg PO Q4H PRN PRN Reason: Headache or Minor Fever Stop: 06/14/21 20:59 Last Admin: 05/17/21 08:19 Dose: 650 mg Documented by: Al Hydrox/Mg Hydrox/Simethicone (Aluminum/Magnesium Susp 30 Ml Udc) 30 ml PO Q4H PRN PRN Reason: GI Upset Stop: 06/14/21 20:59 Aripiprazole (Aripiprazole 5 Mg Tab) [facility] [place] Stop: 06/17/21 12:29 Last Admin: 05/19/21 08:51 Dose: 2.5 mg Documented by: Aspirin (Aspirin 81 Mg Ectab) 81 mg PO QAM [facility] Stop: 06/16/21 08:59 Last Admin: 05/19/21 08:52 Dose: 81 mg Documented by: Bismuth Subsalicylate (Bismuth Subsalicylate Liqd 236 Ml) 15 ml PO PRN PRN PRN Reason: Loose Stool Stop: 06/14/21 20:59 Duloxetine HCl (Duloxetine Hcl 30 Mg Cap) 90 mg PO HS PANCHITO Stop: 06/14/21 23:33 Last Admin: 05/18/21 20:30 Dose: 90 mg Documented by: Furosemide (Furosemide 40 Mg Tab) 40 mg PO DAILY PRN PRN Reason: Edema Stop: 06/15/21 11:04 Hydroxyzine HCl (Hydroxyzine Hcl 25 Mg Tab) 50 mg PO HSZ PRN PRN Reason: Insomnia Stop: 06/14/21 20:59 Last Admin: 05/16/21 00:28 Dose: 50 mg Documented by: Hydroxyzine HCl (Hydroxyzine Hcl 25 Mg Tab) 50 mg PO HS [facility] Stop: 06/15/21 21:59 Last Admin: 05/18/21 20:31 Dose: 50 mg Documented by: Hydroxyzine HCl (Hydroxyzine Hcl 10 Mg Tab) 10 mg PO Q4 PRN PRN Reason: Anxiety Stop: 06/16/21 11:23 Last Admin: 05/19/21 06:55 Dose: 10 mg Documented by: Lisdexamfetamine Dimesylate (Lisdexamfetamine Dimesylate) 1 ea PO Q24H PANCHITO; Protocol Stop: 06/17/21 08:59 Last Admin: 05/19/21 08:52 Dose: 1 ea Documented by: Magnesium Hydroxide (Magnesium Hydroxide Susp 30 Ml Udc) 30 ml PO DAILY PRN PRN Reason: Constipation Stop: 06/14/21 20:59 Non-Formulary Medication (Patient's Own Controlled Med 1) 1 ea PO DAILY PANCHITO Stop: 06/01/21 08:59 Last Admin: 05/19/21 09:01 Dose: Not Given Documented by: Sodium Chloride (Sodium Chloride 0.65% Na Soln 45 Ml ([place])) 1 - 2 sprays NA PRN PRN PRN Reason: Nasal Dryness/Congestion Stop: 06/14/21 20:59 Mental Health & Subst Abuse Tx Psychiatrist Name of Psychiatrist: Demetrice Espinoza Psychiatrist's Date of Appointment with Psychiatrist: 06/07/21 Time of Appointment with Psychiatrist: 1pm Psychiatric Appointment Comment: [address], [place] [address] Therapist Name of Therapist: Daljit Ruiz Therapist's Date of Therapist Appointment: 05/24/21 Time of Therapist Appointment: 4:00 PM Therapy Appointment Comment: Teletherapy Post Discharge Appointments Primary Care Physician Name Of Family Doctor: MARIANO Jackson [facility] Date of Appointment with PCP: 06/29/21 Time of Appointment with PCP: 12:30 PM Provider Appointment Comment: [address], [place] [address]
[2021-05-19] MEDS: DULoxetine HCL 30 MG CAP PO SCH (20:17)
[2021-05-19] MEDS: hydrOXYzine HCl 25 MG TAB PO SCH (20:18)
[2021-05-20] MEDS: hydrOXYzine HCl 10 MG TAB PO PRN (07:25)
[2021-05-20] MEDS: ARIPiprazole 5 MG TAB PO SCH (07:25)
[2021-05-20] MEDS: ASPIRIN 81 MG ECTAB PO SCH (07:25)
[2021-05-20] MEDS ORDERED: LEVOTHYROXINE SODIUM 50 MCG TABLET PO SCH (08:00)
[2021-05-20] MEDS: LISDEXAMFETAMINE DIMESYLATE PO SCH (08:06)
[2021-05-20] MEDS: PATIENT'S OWN CONTROLLED MED 1 PO SCH (08:07)
--- NOTE | 2021-05-20 09:07 | Discharge Summary ---
Date of Service May 20, 2021 History of Present Illness Sherrie reports frequent thoughts of overdosing on propranolol this week just so "all this stress would end". 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 She started saying goodbye to people and knew that "something needed to change". She came to ED at the recommendation of her outpatient therapist. Sherrie has a history of ADHD since childhood and depression "as long as I can remember". She states that her symptoms have been worse following the of her grandfather in December 2020 as she was always closer to him than her father. 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 Finances are tight and she and her have been having couples sessions with her therapist to work on their marital issues. Her is not her son's biological father but has been involved since he was 1 year old. Her son "saved my life" in that she stopped "partying and grew up" but parenting him has been challenging as recently diagnosed on the autism spectrum in March. She reports the diagnosis was not a surprise but stressful as now final. It will open doors to new services for him in but this also requires a lot of coordination with communicating with his aide, teacher, other members of his team. JOSE hasn't helped as his schedule is constantly disrupted and he has difficulties with transitions. She's been having more frequent panic attacks as "my mind is always racing" with worries, even anxious dreams at night but states that Vistaril 50 mg is effective. She doesn't find propranolol or Ativan particularly helpful "though they used to". She has been tried on multiple medications over the years and on/off ADHD medications. She struggles with mood and anxiety on ADHD medications but it's typically better in that she is more productive and can organize her thoughts. She had a period of "hyper"productivity on Adderall trial but otherwise denies symptoms of hypomania. Physical Exam Psychiatric See admission H&P and DOD assessment. Vital Signs (Past 24 Hours) Last Vital Signs Temp 36.5 C 05/20/21 06:39 Pulse 75 05/20/21 06:40 Resp 16 05/20/21 06:39 BP 135/98 05/20/21 06:40 Pulse Ox 96 05/15/21 18:09 Principal Diagnosis major depressive disorder Psychiatric Data See daily stay summary. In short, safety was maintained and the patient was cooperative with care. Medication changes included retrial of Vyvanse, addition of low dose Vistaril as a daytime prn, and augmentation of Cymbalta with low dose Abilify and they tolerated this well. Propranolol and Ativan were discontinued as no longer effective and she had thoughts of overdosing on the beta cheryl prior to admission. Her is bringing those medications to staff at her discharge picker so we can destroy. confirmed that any weapons are secure/she has no access. A family session with her was productive and a safety plan was completed prior to discharge. Her thyroid panel was also slightly abnormal indicating hypothyroidism and care was coordinated with [facility] outpatient. Given her mood symptoms, etc they supported a trial of Synthroid with repeat labs prior to her follow up appo intment rather than waiting for a recheck. The patient voiced good understanding of taking it before breakfast on an empty stomach and waiting 30 min before eating. Day of Discharge Assessment Today the patient voices readiness for discharge. They note improvement in mood and deny thoughts to harm self or others. Thoughts remain organized and they are improved from admission. There is no evidence of psychosis. They agree to take mediations as prescribed and keep follow-up appointments. They are stable for discharge to outpatient level of care. Transition of Care Transition Of Care Record: was reviewed with the patient Advance Directives Advance Directives Information Provided: Yes Advance Directives: No Mental Health Advance Directive: No Advance Directives on File: No Living Will: No Power of Medical Officer: No Advance Directives Reason:: Declines as Mental Health Visit. Risk Factors Assessment Male: No : Yes Do You Have Access To A Gun?: No Mental Health Diagnoses: Yes Substance Use Disorders: No Previous Attempt: No Previous Psychiatric Hospitalization: No Protective Factors Assessment : Yes Responsible for Young Children: Yes Employed: Yes ([employer]) Stable Relationships: Yes Supportive Family: Yes Good Rapport with Provider: Yes Tobacco Cessation at Discharge Tobacco Cessation Medication Prescribed at Discharge: Offered & Pt Refused Total Time Total Time Spent: Greater Than 30 Minutes Total Time Includes: Examination of the patient, Discharge Planning and Medication Reconciliation Discharge Data Lab Results 05/15/21 05/15/21 05/15/21 16:22 16:26 16:26 WBC RBC Hgb Hct MCV MCH MCHC RDW Std Deviation RDW Coeff of Nellie Plt Count MPV Immature Gran % (Auto) Neut % (Auto) Lymph % (Auto) [place] % (Auto) Eos % (Auto) Baso % (Auto) Neut # (Auto) Lymph # (Auto) [place] # (Auto) Eos # (Auto) Baso # (Auto) Immature Gran # (Auto) Sodium Potassium Chloride Carbon Dioxide Anion Gap BUN Creatinine Est Cr Clr Drug Dosing Est GFR ( Amer) Est GFR (Non-Af Amer) BUN/Creatinine Ratio Glucose Fasting Glucose Calcium Total Bilirubin AST ALT Alkaline Phosphatase Total Protein Albumin Globulin Albumin/Globulin Ratio Triglycerides Cholesterol LDL Cholesterol, Calc VLDL Cholesterol, Calc HDL Cholesterol Cholesterol/HDL Ratio TSH Free T4 Urine Color Yellow Urine Appearance Clear Urine pH 5.0 Ur Specific [place] 1.023 Urine Protein Negative Urine Glucose (UA) Negative Urine Ketones Trace H Urine Blood 3+ H Urine Nitrite Negative Urine Bilirubin Negative Urine Urobilinogen Negative Ur Leukocyte Esterase Negative Urine WBC (Auto) 1-5 Urine RBC (Auto) >30 H U Hyaline Cast (Auto) 1-5 U Epithel Cells (Auto) 5-10 H Urine Bacteria (Auto) Negative Urine Test Negative Salicylates Urine Opiates Screen Ur Methadone, Qual Acetaminophen Urine Barbiturates Ur Phencyclidine (PCP) U Amphetamin/Meth Scrn MDMA (Ecstasy) Screen U Benzodiazepines Scrn Ur Cocaine Metabolite U Marijuana (THC) Screen U Marijuana THC Carboxy Drug Screen Comment Ethyl Alcohol mg/dL SARS-CoV-2, RNA, NAAT NEGATIVE 05/15/21 05/15/21 05/15/21 16:26 16:26 16:26 WBC RBC Hgb Hct MCV MCH MCHC RDW Std Deviation RDW Coeff of Nellie Plt Count MPV Immature Gran % (Auto) Neut % (Auto) Lymph % (Auto) [place] % (Auto) Eos % (Auto) Baso % (Auto) Neut # (Auto) Lymph # (Auto) [place] # (Auto) Eos # (Auto) Baso # (Auto) Immature Gran # (Auto) Sodium Potassium Chloride Carbon Dioxide Anion Gap BUN Creatinine Est Cr Clr Drug Dosing Est GFR ( Amer) Est GFR (Non-Af Amer) BUN/Creatinine Ratio Glucose Fasting Glucose Calcium Total Bilirubin AST ALT Alkaline Phosphatase Total Protein Albumin Globulin Albumin/Globulin Ratio Triglycerides Cholesterol LDL Cholesterol, Calc VLDL Cholesterol, Calc HDL Cholesterol Cholesterol/HDL Ratio TSH Free T4 Urine Color Urine Appearance Urine pH Ur Specific [place] Urine Protein Urine Glucose (UA) Urine Ketones Urine Blood Urine Nitrite Urine Bilirubin Urine Urobilinogen Ur Leukocyte Esterase Urine WBC (Auto) Urine RBC (Auto) U Hyaline Cast (Auto) U Epithel Cells (Auto) Urine Bacteria (Auto) Urine Test Salicylates Urine Opiates Screen Neg Ur Methadone, Qual Neg Acetaminophen Urine Barbiturates Neg Ur Phencyclidine (PCP) Neg U Amphetamin/Meth Scrn Neg MDMA (Ecstasy) Screen Neg U Benzodiazepines Scrn Neg Ur Cocaine Metabolite Neg U Marijuana (THC) Screen Pos H U Marijuana THC Carboxy 52 H Cancelled Drug Screen Comment SEE NOTE Cancelled Ethyl Alcohol mg/dL SARS-CoV-2, RNA, NAAT 05/15/21 05/15/21 05/15/21 16:58 16:58 16:58 WBC 9.31 RBC 4.59 Hgb 14.0 Hct 42.0 MCV 91.5 MCH 30.5 MCHC 33.3 RDW Std Deviation 46.9 H RDW Coeff of Nellie 13.9 Plt Count 460 H MPV 10.0 Immature Gran % (Auto) 0.2 Neut % (Auto) 60.8 Lymph % (Auto) 28.8 [place] % (Auto) 7.6 Eos % (Auto) 2.3 Baso % (Auto) 0.3 Neut # (Auto) 5.66 Lymph # (Auto) 2.68 [place] # (Auto) 0.71 H Eos # (Auto) 0.21 Baso # (Auto) 0.03 Immature Gran # (Auto) 0.02 Sodium 137 Potassium 3.8 Chloride 105 Carbon Dioxide 25 Anion Gap 7 BUN 15 Creatinine 1.02 Est Cr Clr Drug Dosing 124.5 Est GFR ( Amer) 85.5 Est GFR (Non-Af Amer) 73.8 BUN/Creatinine Ratio 14.7 Glucose 86 Fasting Glucose Calcium 8.9 Total Bilirubin 0.4 AST 26 ALT 47 Alkaline Phosphatase 78 Total Protein 6.9 Albumin 3.9 Globulin 3.0 Albumin/Globulin Ratio 1.3 Triglycerides Cholesterol LDL Cholesterol, Calc VLDL Cholesterol, Calc HDL Cholesterol Cholesterol/HDL Ratio TSH 6.601 H Free T4 0.95 Urine Color Urine Appearance Urine pH Ur Specific [place] Urine Protein Urine Glucose (UA) Urine Ketones Urine Blood Urine Nitrite Urine Bilirubin Urine Urobilinogen Ur Leukocyte Esterase Urine WBC (Auto) Urine RBC (Auto) U Hyaline Cast (Auto) U Epithel Cells (Auto) Urine Bacteria (Auto) Urine Test Salicylates Urine Opiates Screen Ur Methadone, Qual Acetaminophen Urine Barbiturates Ur Phencyclidine (PCP) U Amphetamin/Meth Scrn MDMA (Ecstasy) Screen U Benzodiazepines Scrn Ur Cocaine Metabolite U Marijuana (THC) Screen U Marijuana THC Carboxy Drug Screen Comment Ethyl Alcohol mg/dL SARS-CoV-2, RNA, NAAT 05/15/21 05/15/21 05/18/21 16:58 16:58 08:35 WBC RBC Hgb Hct MCV MCH MCHC RDW Std Deviation RDW Coeff of Nellie Plt Count MPV Immature Gran % (Auto) Neut % (Auto) Lymph % (Auto) [place] % (Auto) Eos % (Auto) Baso % (Auto) Neut # (Auto) Lymph # (Auto) [place] # (Auto) Eos # (Auto) Baso # (Auto) Immature Gran # (Auto) Sodium Potassium Chloride Carbon Dioxide Anion Gap BUN Creatinine Est Cr Clr Drug Dosing Est GFR ( Amer) Est GFR (Non-Af Amer) BUN/Creatinine Ratio Glucose Fasting Glucose 88 Calcium Total Bilirubin AST ALT Alkaline Phosphatase Total Protein Albumin Globulin Albumin/Globulin Ratio Triglycerides 125 Cholesterol 202 H LDL Cholesterol, Calc 147 VLDL Cholesterol, Calc 25 HDL Cholesterol 30 Cholesterol/HDL Ratio 6.7 H TSH Free T4 Urine Color Urine Appearance Urine pH Ur Specific [place] Urine Protein Urine Glucose (UA) Urine Ketones Urine Blood Urine Nitrite Urine Bilirubin Urine Urobilinogen Ur Leukocyte Esterase Urine WBC (Auto) Urine RBC (Auto) U Hyaline Cast (Auto) U Epithel Cells (Auto) Urine Bacteria (Auto) Urine Test Salicylates < 3.0 L Urine Opiates Screen Ur Methadone, Qual Acetaminophen < 3 L Urine Barbiturates Ur Phencyclidine (PCP) U Amphetamin/Meth Scrn MDMA (Ecstasy) Screen U Benzodiazepines Scrn Ur Cocaine Metabolite U Marijuana (THC) Screen U Marijuana THC Carboxy Drug Screen Comment Ethyl Alcohol mg/dL < 10.0 SARS-CoV-2, RNA, NAAT Hospital Course (1) Depression with suicidal ideation: (2) Anxiety: (3) Attention deficit disorder (ADD) in adult: (4) TSH elevation: 05/19/21: patient's thyroid profile discussed with PCP office who would support her starting Synthroid 50 mcg in am on empty stomach with f/u panel after 06/24 but before appointment on 06/29/21. Will check on insurance coverage for Abilify. 05/18/21: reviewed metabolic labs and re-reviewed risks with Abilify. Patient agrees to 2.5 mg daily to address mood. 05/17/21: Risks/benefits/alternative treatments reviewed re: adjunctive Abilify 2.5 mg for depression. Will wait to determine response to Vyvanse today prior to ordering. Discussion included but was not limited need for monitoring for TD and metabolic issues and fasting labs ordered for the am. Decrease Hydroxyzine to 10 mg for daytime prn doses on a trial basis as would be preferred to benzo. 05/16/21: The patient was admitted to the [facility]) on q15 min checks (behavioral with suicide precautions) for safety. The patient will participate in group, recreational, and milieu therapies and will be offered additional individual and family sessions as clinically appropriate. Risks/benefits/alternatives reviewed re: her current medication. Propranolol and Ativan prns will be d/c in favor of a trial of Vistaril 25 mg during day prn and treating her ADHD. Vyvanse is non-formulary. Risks/benefits/alternatives reviewed as she denies arrhythmia, family hx of sudden /aneurysm, etc and has tolerated sitmulants well for decades. Vyvanse 30 mg po qam sent to pharmacy and can bring when able to picker. She has been screened for substance use and counseled re: addictive potential and is at low risk for misuse/diversion. She was counseled re: her TSH elevation and normal thyroid hormone and that f/u with PCP is recommended for recheck in 6 weeks. Mental Health & Subst Abuse Tx Psychiatrist Name of Psychiatrist: Demetrice Ferguson - Pat Espinoza Psychiatrist's Date of Appointment with Psychiatrist: 06/07/21 Time of Appointment with Psychiatrist: 1pm Psychiatric Appointment Comment: [address], [place] [address] Therapist Name of Therapist: Daljit Ruiz Therapist's Date of Therapist Appointment: 05/24/21 Time of Therapist Appointment: 4:00 PM Therapy Appointment Comment: Teletherapy Post Discharge Appointments Primary Care Physician Name Of Family Doctor: MARIANO [facility] Date of Appointment with PCP: 06/29/21 Time of Appointment with PCP: 12:30 PM Provider Appointment Comment: [address], [place] [address]; lab draw after 06/24 Smoking Cessation Counseling Tobacco Cessation Medication Prescribed at Discharge: Offered & Pt Refused Contact Information Discharge Discharge Address: [facility] [address] [facility] [address] Discharge Plan Discharge Items Patient Disposition: Home - Self-Care Reason For Visit: DEPRESSION, SUICIDAL THOUGHTS, Discharge Diagnosis: major depressive disorder Activity: Resume your previous activity Non-emergency contact: Primary Care Provider, Psychiatrist and Therapist Call non-emergency contact if: you have any medication questions and your symptoms worsen Follow-up/Referrals: Dom Page MD [Primary Care Provider] - Diet: Regular Addtl Attending Provider Instructions: SPECIAL CARE INSTRUCTIONS: 1. Follow through with your scheduled aftercare appointments. If unable to keep an appointment, please call to reschedule. 2. Take your medication only as prescribed. Medication should not be changed or stopped without the approval of your doctor. In the event of worsening symptoms or concerns about side effects, contact your doctor immediately. 3. Utilize new healthy coping skills, anger management skills, and stress management skills learned during your hospitalization. Journal feelings and process them with a support person. Identify stressors or situations that may result in relapse, deterioration or inappropriate behaviors and develop a plan to deal with those issues. 4. If your coping skills are ineffective and you are in crisis, contact your outpatient providers for direction. If unable to reach your providers, please call the [facility] CRISIS LINE AT , go to the [facility] walk-in center at [address] [facility], [address], [place], or go to the closest Emergency Room. 5. Avoid alcohol and un-prescribed drugs. 6. You have been provided with the Mental Health Advance Directives Pamphlet for your review. 7. Your condition is stable for discharge to outpatient level of care, but recovery is an ongoing process. Ifthoughts to harm yourself or others return, follow the safety plan developed during your stay. Planning for a safe return home includes securing weapons. Our treatment team recommends weaponsbe removed from the home until your outpatient provider reassesses your progress. In rare cases where the items themselvescannot be removed, guns and ammunitionshould be secured separatelyand keys stored by a reliable personoutside of the home. If you were admitted on an involuntary commitment, the police or other legal authorities may be involved in this process. AFTERCARE APPOINTMENTS: * Please call your insurance company prior to your scheduled appointment to confirm your aftercare providers are covered. Take your insurance information to your appointments. WHO TO CALL AND WHEN: Medical Emergencies: For questions or emergencies related to your hospital stay, please contact the Inpatient Behavioral Health Unit at [phone]. A human resource intern is on-call 07/11 for the Behavioral Health Unit for emergencies At any time you feel your situation is an emergency, you may also call 911 immediately. Pending Studies at Discharge: No Studies:: but Stand-Alone Forms: [facility], Smoking Cessation Medications and DC Order Prescriptions: New Vyvanse 30 mg capsule 30 mg PO QAM Qty: 30 RF: 0 hydroxyzine HCl 10 mg Tablet 10 mg PO Q4 PRN (Reason: Anxiety) 30 Days Qty: 60 RF: 0 aripiprazole [Abilify] 5 mg Tablet 2.5 mg PO QAM 30 Days Qty: 15 RF: 0 Continued aspirin [Aspirin Childrens] 81 mg Tablet,Chewable 81 mg PO QAM RF: 0 duloxetine 30 mg capsule,delayed release(DR/EC) 30 mg PO HS RF: 0 duloxetine 60 mg capsule,delayed release(DR/EC) 60 mg PO HS RF: 0 furosemide [Lasix] 40 mg tablet 40 mg PO DAILY PRN (Reason: Edema) RF: 0 hydroxyzine HCl 50 mg tablet 50 mg PO HS RF: 0 Discontinued propranolol 10 mg tablet 10 mg PO BID PRN (Reason: Anxiety) RF: 0 lorazepam 0.5 mg tablet 0.5 mg PO BID PRN (Reason: Anxiety) RF: 0 Discharge Orders: Discharge Order (Routine); Ordered 05/20/21 Ordered By: Katarzyna Meehan Admission Data Admit Date/Time: 05/15/21 21:19 Attending Provider: Katarzyna Meehan Admit Provider: Katarzyna Meehan Primary Care Provider: Dom Page V. Other Interventions: KAYCEE Interdisciplinary Discharge Planning Last Done: 05/20/21 09:41 Coding Level of Care Code 56187 D/C day mgmt > 30 min Diagnoses Depression with suicidal ideation F32.A; R45.851 Anxiety F41.9 Attention deficit disorder (ADD) in adult F98.8 TSH elevation R79.89
[2021-05-20] MEDS ORDERED: DESTROY THIS MEDICATION ONE (10:16)
== END 2021-05-20 12:35 | disposition home or self-care (01) | DRG 881 ==
LOC: ED 16:07 → 3S 21:11

== ENCOUNTER 2023-08-26 17:25 | Inpatient (IN) ==
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
[2023-08-26 18:14] LABS: Appearance Urine Clear (Clear); Bacteria Urine Automated None Seen (None Seen); Bilirubin Urine Negative (Negative); Blood Urine 3+ (Negative); Cast Urine Automated 0-2 /lpf (0-2); Color Urine Yellow; Epithelial Cell Urine Auto 0-2 /hpf (0-2); Glucose Urine UA Negative (Negative); Ketones Urine Negative (Negative); Leukocyte Esterase Urine Trace (Negative); Nitrite Urine Negative (Negative); Protein Urine Negative (Negative); RBC Urine Automated >20 /hpf (0-2); Specific Gravity Urine 1.008 (1.000-1.030); Urobilinogen Urine Negative (Negative); WBC Urine Automated 0-5 /hpf (0-5); pH Urine 5.5 (4.5-7.5)
[2023-08-26 18:25] LABS: Basophils # (auto) 0.04 K/uL (0.00-0.20); Basophils % (auto) 0.4 %; Eosinophils # (auto) 0.18 K/uL (0.00-0.50); Hematocrit (blood only) 41.4 % (37.0-47.0); Hemoglobin 13.6 g/dl (12.0-16.0); Immature Granulocytes # (auto) 0.02 K/uL (0.01-0.20); Immature Granulocytes % (auto) 0.2 %; Lymphocytes # (auto) 2.83 K/uL (1.20-3.40); Lymphocytes % (auto) 31.6 %; Mean Corpuscular Hemoglobin 30.2 pg (25.0-34.0); Mean Corpuscular Hgb Conc 32.9 g/dL (32.0-36.0); Mean Platelet Volume 9.7 fL (9.4-12.4); Monocytes # (auto) 0.58 K/uL (0.11-0.59); Monocytes % (auto) 6.5 %; Neutrophils % (auto) 59.3 %; Platelet Count 445 K/uL (130-400); RDW Coefficient of Variation 13.5 % (11.5-14.5); RDW Standard Deviation 45.7 fL (36.4-46.3); White Blood Count 8.95 K/ul (4.8-10.8)
[2023-08-26 18:36] LABS: Albumin Level 3.8 gm/dl (3.4-5.0); Bilirubin,Total 0.3 mg/dl (0.2-1.0); Calcium 9.6 mg/dl (8.6-10.3); Potassium 3.6 mmol/L (3.5-5.1)
[2023-08-26 18:41] LABS: Pregnancy Test, Serum Negative (Negative)
[2023-08-26 18:42] LABS: Albumin Globulin Ratio 1.3 (0.9-2); BUN Creatinine Ratio 9.8 (10-20); Creatinine Clr Calc Pharmacy 105.7 ml/min; Est GFR (African American) 74.7 ml/min; Est GFR (Non-African American) 64.5 ml/min; Globulin 2.9 gm/dl (2.5-4.0); Total Protein 6.7 gm/dl (6.0-8.3)
[2023-08-26 18:46] LABS: Amphetamines+Metham, Urine Neg (Neg); Barbiturates, Urine Neg (Neg); Benzodiazepine, Urine Neg (Neg); Cocaine, Urine Neg (Neg); MDMA (Ecstacy), Urine Neg (Neg); Marijuana, Urine Pos (Neg); Methadone, Urine Neg (Neg); Opiate, Urine Neg (Neg); Phencyclidine, Urine Neg (Neg)
[2023-08-26 18:56] LABS: Thyroid Stimulating Hormone 14.796 uIu/ml (0.300-4.500)
[2023-08-26 19:01] LABS: Acetaminophen < 3 ug/ml (10-30); Salicylate < 3.0 mg/dl (3.0-30)
[2023-08-26 19:42] LABS: T4 Free Thyroxine 0.71 ng/dl (0.61-1.60)
[2023-08-26] MEDS ORDERED: MAGNESIUM HYDROXIDE SUSP 30 ML UDC PO PRN (20:22)
[2023-08-26] MEDS ORDERED: SODIUM CHLORIDE 0.65% NA SOLN 45 ML (OCEAN) PRN (20:22)
[2023-08-26] MEDS ORDERED: ALUMINUM/MAGNESIUM SUSP 30 ML UDC PO PRN (20:22)
[2023-08-26] MEDS ORDERED: BISMUTH SUBSALICYLATE LIQD 236 ML PO PRN (20:22)
[2023-08-26] MEDS ORDERED: hydrOXYzine HCl 25 MG TAB PO PRN (20:22)
[2023-08-26] MEDS: OLANZapine 5 MG TABLET PO SCH (21:58)
[2023-08-26] MEDS: ACETAMINOPHEN 325 MG TAB PO PRN (22:00)
[2023-08-26] MEDS: hydrOXYzine HCl 25 MG TAB PO PRN (22:00)
[2023-08-26] MEDS: LORazepam 1 MG TAB PO PRN (22:00)
[2023-08-27] MEDS: NICOTINE 7 MG/24 HR TDSY TD SCH (08:11)
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
[2023-08-27] MEDS: buPROPion XL 150 MG TABCR PO SCH (11:31)
[2023-08-27] MEDS: LURASIDONE HCL 20 MG TAB PO SCH (13:01)
[2023-08-27] MEDS: LITHIUM CARBONATE 300 MG TAB PO SCH (13:02)
[2023-08-27] MEDS: LORazepam 0.5 MG TAB PO PRN (17:56)
[2023-08-27] MEDS: NICOTINE POLACRILEX 2 MG GUM MT PRN (19:22)
[2023-08-27] MEDS: lamoTRIgine 25 MG TAB PO SCH (20:54)
[2023-08-28 08:47] LABS: Estimated Average Glucose 114 mg/dl; Hemoglobin A1C 5.6 % (4.5-5.6)
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
[2023-08-28 09:31] LABS: Chol HDL Ratio 4.5 (0-5)
[2023-08-28] MEDS: cloNIDine HCL 0.1 MG TAB PO SCH (21:29)
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
[2023-08-30 13:17] LABS: Marijuana Quant, GCMS Urine 508 ng/mL (<5)
== END 2023-08-30 13:15 | disposition home or self-care (01) | DRG 885 ==
LOC: ED 17:25 → 3S 21:01